=== PATIENT | female | born 1930 | race Caucasian/White ===

== ENCOUNTER 2017-03-27 08:00 | Outpatient (CLI) | payer MEDICARE, BC ==
--- NOTE | 2017-03-27 10:40 | MRI ---
NONCONTRAST LUMBAR SPINE MRI: Date: 03/27/17 CLINICAL HISTORY: Intervertebral disc disorder with lumbar radiculopathy. FINDINGS: Conus medullaris is normal in morphology, terminating at the L1-2 level. There is prominent end plat e degenerative change and disc degeneration at L4-5 with Grade I-II spondylolisthesis. There is paula re bilateral L4-5 level facet osteoarthritis. L1-2: There is a broad based disc osteophyte complex producing mild narrowing of the central canal and mild bilateral neural foraminal stenosis. L2-3: No high grade central canal or foraminal stenosis. L3-4: There is a broad based disc bulge with a superimposed right subarticular disc protrusion prod ucing potential for impingement upon the traversing right L4 nerve root. There is mild bilateral pavel ral foraminal narrowing. L4-5: There is moderate to severe central canal stenosis and moderate to severe bilateral neural fo raminal stenosis, right greater than left, results in above described degenerative listhesis and fac et osteoarthritis. L5-S1: There is no high grade central canal or neural foraminal stenosis. Incidental note of cyst formation within the kidneys bilaterally. IMPRESSION: Severe disc degenerative disease with associated degenerative spondylolisthesis producing moderate t o severe central canal and bilateral neural foraminal stenosis at the L4-5 level. POS: [facility]
== END 2017-03-27 08:01 | disposition home or self-care (01) ==
LOC: MRI 08:00
PROVIDERS: ATTEND Specialist
DX: M51.16 Intervertebral disc disorders with radiculopathy, lumbar region (principal); M43.16 Spondylolisthesis, lumbar region; M48.061 Spinal stenosis, lumbar region without neurogenic claudication
CPT/HCPCS: 72148

== ENCOUNTER 2018-01-24 08:07 | Inpatient (IN) | payer MEDICARE, BC ==
[2018-01-24 09:18] LABS: #Lymphocytes 1.7 thou/uL (1.20-3.40); #Monocytes 0.9 thou/uL (0.11-0.59); %Basophils 0.4 % (0.0-1.0); %Lymphocytes 17.7 % (21.0-51.0); %Monocytes 9.4 % (0.0-10.0); %Neutrophils 72.4 % (42.0-75.0); Mean Corpuscular HGB CONC 35.2 g/dL (32.0-36.0); Mean Corpuscular Hemoglobin 31.9 pg (27.0-31.0); Mean Corpuscular Volume 90.6 fL (78.0-98.0); Mean Platelet Volume 6.3 fL (7.4-10.4); Platelet Count 325 thou/uL (130-400); RBC Distribution Width 10.8 % (11.5-14.5); Red Blood Cell (RBC) Count 4.39 mill/uL (4.20-5.40); White Blood Cell (WBC) Count 9.6 thou/uL (4.8-10.8)
[2018-01-24 09:33] LABS: ALT (SGPT) 28 U/L (8-55); AST (SGOT) 33 U/L (5-34); Albumin 4.9 g/dL (3.4-4.8); Alkaline Phosphatase 52 U/L (40-150); Anion Gap 15 mmol/L (10-20); BUN (Urea Nitrogen) 16 mg/dL (9.8-20.1); Bilirubin, Total 0.5 mg/dL (0.2-1.2); Calc. Creatinine Clearance 0 mL/min (70-130); Calcium 10.4 mg/dL (7.8-10.44); Carbon Dioxide 28 mmol/L (23-31); Chloride 99 mmol/L (98-107); Estimated GFR-MDRD 81; Globulin 2.8 g/dL (2.4-3.5); Glucose 118 mg/dL (83-110); Potassium 4.2 mmol/L (3.5-5.1); Protein, Total 7.7 g/dL (6.0-8.3); Sodium 138 mmol/L (136-145)
[2018-01-24 09:35] LABS: CKMB 2.2 ng/mL (0-6.6); Troponin I Less than 0.010 ng/mL (< 0.028)
--- NOTE | 2018-01-24 09:58 | CT ---
NONCONTRAST HEAD CT: HISTORY: CVA. Right-sided symptoms. Previous laminectomy. COMPARISON: None. TECHNIQUE: A noncontrast head CT is performed from the skull base to the skull vertex. FINDINGS: No parenchymal hemorrhage. No extraaxial hematoma. No midline shift. The basilar cisterns are chow nt. Brain volume is age appropriate. Cortical townsend white matter differentiation is preserved. The ventricles and sulci are patent and symmetric. White matter hypodensity due to chronic small vessel ischemic changes is noted. The calvarium is intact. Adequate aeration of the sinuses and mastoid air cells. Cavernous carotid atherosclerosis is noted. IMPRESSION: No acute intracranial process. POS: [facility]
--- NOTE | 2018-01-24 10:51 | CT ---
CT CERVICAL SPINE WITHOUT CONTRAST: Date: 01/24/18 HISTORY: Pain. COMPARISON: CT cervical spine dated 08/27/13. FINDINGS: There are severe calcifications of the proximal left and right internal carotid arteries, as well as both carotid bulbs. Thyroid is unremarkable. The lung apices are clear. No paraspinal muscle hematoma. No acute fracture or malalignment. There is anterolisthesis which has progressed of C6 over C7 due to severe degenerative facet arthrosi s. This anterolisthesis is approximately 3-4 mm. The occipital condyles are intact. The odontoid process is intact. There is left C1 and C3 posterior spinal fusion with the left C1 screw entering the left side of the atlantodental interval and is abno rmal and medial to the lateral mass of C1. This is unchanged. This causes chronic erosive changes of the odontoid process. The right C1 screw is in good position. The right C2 screw is in good position. The right C3 screw is in good position. The left C2 screw is at the inferior margins of the articular pillar of C2. Also, chronic fracture of the right articular pillar of C2, unchanged from the comparison examination . There is moderate rightward deviation of the occiput relative to the cervical spine with a leftward curvature of the cervical spine. There is moderate to severe right-sided C3-4, C4-5, C5-6, and C6-7 neural foraminal narrowing. IMPRESSION: 1. Progressive C7 over T1 anterolisthesis, 3-4 mm. 2. Progressive rightward deviation of the occiput relative to the leftward curvature of the cervical spine. 3. Severe calcifications of both carotid bulbs and proximal internal carotid arteries. 4. Progressive remodeling around the left C1 articular pillar screw with erosion of the odontoid pro cess. 5. The progressive leftward curvature of the cervical spine causes moderate to severe right-sided ne ural foraminal narrowing at multiple levels. POS: [facility]
[2018-01-24] MEDS ORDERED: Gadobenate Dimeglumine 529 MG/1 ML (20ML VIAL) ONE (11:59)
[2018-01-24] MEDS ORDERED: Diabetic Tussin 200 MG/10 ML UDCUP PO PRN (12:53)
[2018-01-24] MEDS ORDERED: Senokot 8.6 MG TAB PO PRN ×2 (12:53)
[2018-01-24] MEDS ORDERED: Nitroglycerin 0.4 MG TAB (25 Tab Bottle) SL PRN (12:53)
[2018-01-24] MEDS ORDERED: Mag-Al 1200 mg/1200 mg/30 ML UDCUP PO PRN (12:53)
[2018-01-24] MEDS ORDERED: Benzonatate 100 MG CAP PO PRN (12:53)
[2018-01-24] MEDS ORDERED: Lorazepam 1 MG TAB PO PRN (12:53)
[2018-01-24] MEDS ORDERED: Acetaminophen 325 MG TAB PO PRN (12:53)
[2018-01-24] MEDS ORDERED: Bisacodyl 5 MG TAB PO PRN ×2 (12:53)
[2018-01-24] MEDS ORDERED: Calcium Carbonate 500 MG ChewTAB PO PRN (12:53)
[2018-01-24] MEDS ORDERED: Hydrocortisone Sod Succ/PF 100 mg/2 ml Vial ONE (14:35)
[2018-01-24] MEDS ORDERED: PHENYLEPHRINE-NS 100 MCG/ML 10 ML SYRINGE ONE (14:35)
[2018-01-24] MEDS ORDERED: Lidocaine 1% PF 5 ML VIAL ONE (14:35)
[2018-01-24] MEDS ORDERED: PROPOFOL 200 MG/20 ML VIAL ONE (14:35)
[2018-01-24] MEDS ORDERED: Ondansetron HCl/PF 4 MG/2 ML Vial ONE (14:35)
[2018-01-24] MEDS ORDERED: Metamucil PACK PO PRN (16:45)
--- NOTE | 2018-01-24 16:45 | HP ---
DATE OF ADMISSION: 01/24/2018 PRIMARY CARE PHYSICIAN: Jorge Leyva. CHIEF COMPLAINT: Shooting lightning pain and lighting sensation traveling down the legs. Left-sided imbalance and feeling of falling on the left side and right-sided heaviness. HISTORY OF PRESENTING ILLNESS: Ms. Khoury is a pleasant 87-year-old female with past medical history of coronary artery disease, hypertension, and breast cancer status post right-sided mastectomy, who presented to the ER with above-mentioned complaint. She also has history of bleeding duodenal ulcer. History is mainly obtained by the patient herself who is an excellent historian. Electronic medica l records have been reviewed and the case has been discussed with admitting ER physician. Ms. Khoury reports that she tried to reach up shelf last week and started to feel shooting pain and l ighting sensation traveled down her arm into her neck. She tried it again twice more and the same sy mptoms happened. Later, she noticed that she has been having some dizziness every time she moves her head to the side. She tried to go get an appointment with primary care physician, who wanted to ref er her to the Neurosurgery, but she could not get an early appointment. Later, she started to note d own that she has been having symptoms of right-sided leg heaviness and she was stumbling and falling to her left. These symptoms started yesterday. She has also now been noticing shooting shock waves going down to her legs for the past week. She has called her neurosurgeon, Dr. Son's office an d was scheduled to see them later this week with Dr. Mcclelland. She has been advised to start wearing the collar until her appointment. When she started to get the symptoms of left-sided stumbling and right leg weakness, she presented to the [facility] instead. In the [facility], she was hypertensive with blood pressure of 185/102, otherwise stable. He r workup included a CT scan of the brain which did not show any acute changes. Her 12-lead EKG was n egative for any acute changes as well. She underwent a spinal CT scan in the [facility] as well, which showed severe progressive leftward curvature of the cervical spine causing mod erate to severe right-sided neural foraminal narrowing at multiple levels, calcification of both simmons tid bulbs and proximal internal carotid arteries. She was given aspirin and was transferred to our [facility] for admission for further workup. At the time of my examination, the patient is stable and comfortably lying in bed, but she is still h aving on and off symptoms of shooting sensation down her legs. The patient denies any urinary or bowel incontinence. She denies any recent illnesses. No fever, ch ills or cough. She denies any muscle weakness or paralysis. She denies any problems with her speech , her vision, or swallowing difficulties. PAST MEDICAL HISTORY: 1. Hypertension. 2. Dyslipidemia. 3. Coronary artery disease. 4. History of right breast cancer, status post mastectomy. ALLERGIES: CODEINE and IRON. PAST SURGICAL HISTORY: Tonsillectomy, cholecystectomy, mastectomy, heart catheterization, cataract a nd back surgeries. FAMILY HISTORY: No significant family history of premature coronary artery disease or stroke. CURRENT MEDICATIONS: Include TriCor 145 mg daily, Zetia 10 mg daily, fish oil daily, Tylenol as need ed, tramadol as needed, Welchol 1875 mg p.o. b.i.d., ascorbic acid daily, pyridoxine daily, omeprazol e 20 mg daily, Metamucil as needed, Lotrel 1 capsule 5/10 mg daily, Lasix 20 mg daily, Aleve b.i.d. 2 tablets, Dramamine as needed, Benadryl as needed, calcium plus vitamin D daily, and aspirin 81 mg da jae. SOCIAL HISTORY: She is and lives with her family. She has no history of drug, tobacco or al cohol abuse. REVIEW OF SYSTEMS: A 12-point review of systems is done. It is negative except for those mentioned in the history and physical. LABORATORY DATA: CBC is rather unremarkable. Serum chemistries within normal limits. Blood sugar 1 18. Cardiac enzymes negative. IMAGING DATA: A 12-lead EKG by my review shows first-degree AV block with sinus rhythm at 100 beats per minute with left ventricular hypertrophy. CT scan of the brain done in the emergency room by my review is negative for any acute hemorrhage or infarction. Cervical spinal CT as per the HPI. PHYSICAL EXAMINATION: VITAL SIGNS: Most recent vital signs; temperature 97.7, pulse of 85, respirations 18, saturating 95% on room air, blood pressure 185/85. GENERAL: No acute distress, awake, alert, oriented x3. HEENT: The patient is wearing a cervical collar. Head is normocephalic, atraumatic. Pupils are equ al and reactive to light and accommodation. Extraocular movement intact. NECK: Supple without any lymphadenopathy, JVD or bruit. CHEST: Clear to auscultation without any wheezing, rales or rhonchi. CARDIOVASCULAR: Rhythm is regular without any murmur, rubs or gallops. ABDOMEN: Soft, nontender, nondistended, positive bowel sounds. EXTREMITIES: Free of any cyanosis, clubbing, or edema. NEUROLOGIC: [id number] is difficult on the right with intentional tremor and difficulty with finge r-to-nose on the right side. No nystagmus noticed. No focal sensory or motor deficits. Straight le g raise testing does not induce any pain in the back. SKIN: Free of any rashes or bruises. I feel warm and dry to touch. PSYCHIATRIC: Normal affect. IMPRESSION AND PLAN: 1. Right leg weakness and imbalance. The patient's symptoms are quite consistent with radiculopathy . At this time, she will be continued on the cervical collar and we will consult Neurosurgery for fu rther recommendations. We will go ahead and obtain the MRI of the lumbar, thoracic and cervical spin e. We will also obtain an MRI of the brain to rule out CVA, though the possibility of same is low. Also, we will obtain ultrasound of her neck to rule out carotid arterial stenosis given the fact that she has a moderate amount of calcium deposition seen in the CT scan of the neck. Otherwise, continu e aspirin for now. The patient is intolerant to statins, so she will be continued on Welchol and Zet ia for now. We will consult OT/PT as well. 2. History of coronary artery disease. At this time, there is no evidence to suggest ACS. The butch ent did not have any symptoms of the same. She had an echocardiogram in 2016 and follows up with Dr. Colón as an outpatient. She is instructed to continue that. We will resume her home medication of the aspirin and TriCor as well as Zetia, fish oil, and Welchol. 3. Uncontrolled hypertension. The patient's blood pressure is quite elevated. She will be restarte d on her home medications and we will add p.r.n. antihypertensives for now. We will give her an extr a dose of her Lotrel today. 4. History of right breast cancer status post mastectomy. 5. Deep venous thrombosis and gastrointestinal prophylaxis. 6. Code status: FULL CODE. Discussed with the patient. DISPOSITION: Ms. Khoury is currently being admitted to the hospital with symptoms suggestive of radi culopathy. Further management will depend upon her clinical course. She is currently under observat ion status. We will also rule out CVA as above.
[2018-01-24] MEDS ORDERED: EPINEPHrine 1 MG/10 ML Abboject SYRINGE ONE (18:00)
[2018-01-24] MEDS ORDERED: DOPamine/D5W 400 mg/250 ml PREMIX ONE (18:00)
[2018-01-24] MEDS ORDERED: Atropine Sulfate 1 mg/10 ml Syringe ONE (18:00)
[2018-01-24] MEDS: Ondansetron HCl/PF 4 MG/2 ML Vial IVP PRN (18:30)
[2018-01-24 18:50] LABS: Anion Gap 16 mmol/L (10-20); BUN (Urea Nitrogen) 21 mg/dL (9.8-20.1); Calc. Creatinine Clearance 41 mL/min (70-130); Calcium 9.1 mg/dL (7.8-10.44); Carbon Dioxide 20 mmol/L (23-31); Chloride 103 mmol/L (98-107); Estimated GFR-MDRD 53; Glucose 118 mg/dL (83-110); Potassium 4.3 mmol/L (3.5-5.1); Sodium 135 mmol/L (136-145)
[2018-01-24 18:52] LABS: Troponin I 0.011 ng/mL (< 0.028)
[2018-01-24 19:24] LABS: #Eosinphils 0.1 thou/uL (0.0-0.7); #Lymphocytes 1.6 thou/uL (1.20-3.40); #Neutrophils 6.6 thou/uL (1.40-6.50); %Basophils 0.3 % (0.0-1.0); %Eosinophils 0.8 % (0.0-10.0); %Lymphocytes 17.2 % (21.0-51.0); %Monocytes 11.1 % (0.0-10.0); %Neutrophils 70.7 % (42.0-75.0); Hemoglobin 11.8 g/dL (12.0-16.0); Mean Corpuscular HGB CONC 35.5 g/dL (32.0-36.0); Mean Corpuscular Hemoglobin 34.6 pg (27.0-31.0); Mean Corpuscular Volume 97.4 fL (78.0-98.0); Mean Platelet Volume 6.5 fL (7.4-10.4); Platelet Count 268 thou/uL (130-400); RBC Distribution Width 11.2 % (11.5-14.5); Red Blood Cell (RBC) Count 3.42 mill/uL (4.20-5.40); White Blood Cell (WBC) Count 9.3 thou/uL (4.8-10.8)
--- NOTE | 2018-01-24 19:29 | MRI ---
BRAIN MRI WITH AND WITHOUT CONTRAST 01/24/18 HISTORY: Patient states two days ago while looking up felt a sharp pain and shockwave going down the entire atul dy and legs. Dizziness . Difficulty walking since this morning. COMPARISON: None. TECHNIQUE: Brain MRI is performed with and without intravenous gadolinium administration. Multisequential, multi planar imaging is performed. FINDINGS: No hemorrhage on the axial gradient echo sequence. No parenchymal mass, mass effect, or midline shift . Brain volume is age appropriate. Cortical townsend-white matter differentiation is preserved. Ventricles and sulci are patent and symmetric. Central arterial flow voids are maintained. Absent restricted diffusion. T2 and FLAIR white matter hyperintensity due to chronic small vessel ischemic changes are noted. Small mucous retention cyst in the left maxillary sinus. Adequate mastoid air cell aeration. No pathologic enhancement of the brain parenchyma. IMPRESSION: 1. No pathologic enhancement of the brain parenchyma. Absent restricted diffusion. No acute infa rct. 2. There are chronic small vessel ischemic changes in the white matter. POS: [facility]
--- NOTE | 2018-01-24 19:48 | MRI ---
MRI CERVICAL SPINE WITH AND WITHOUT CONTRAST: 01/24/18 HISTORY: Cervical fusion. Patient felt a sharp pain in her neck when gazing upward. Patient now feels shockwav e throughout her entire body and legs. Dizziness and difficulty walking. COMPARISON: 03/05/13. TECHNIQUE: Cervical spine MRI is performed with and without intravenous gadolinium administration. Multisequential, multiplanar imaging is performed. FINDINGS: There is evidence of posterior fusion changes at C1, C2 and C3. There is associated metallic suscepti bility artifact. Overall, the cervical vertebra have appropriate T1 marrow signal intensity. No fract ure. 3.2 mm of anterolisthesis of C3 upon C4 and 2.7 mm of anterolisthesis of C6 upon C7. No significant STIR hyperintensity to suggest vertebral body edema or ligamentous injury. There appea r to be type I and type II Modic change at C6-C7. The visualized brain parenchyma, cervicomedullary junction, cervical cord and upper thoracic cord do not have any significant signal abnormality. No abnormal enhancement of the postcontrast images. C2-C3: No significant disc osteophyte complex. No high grade central canal stenosis or high grade for aminal narrowing. C3-C4: Broad based disc osteophyte complex abuts the thecal sac. Mild central canal stenosis. Degener ative changes in the bilateral uncovertebral joints results in moderate bilateral foraminal narrowing C4-C5: Broad based disc osteophyte complex abuts the thecal sac. Mild central canal stenosis. Degener ative changes of bilateral uncovertebral joints results in mild bilateral foraminal narrowing. C5-C6: Broad based disc osteophyte complex abuts the thecal sac. Mild central canal stenosis. Mild bi lateral foraminal narrowing. C6-C7: There is severe central canal stenosis secondary to what appears to be an acute disc herniatio n. This disc fragment measures approximately 0.7 cm craniocaudal x 0.5 cm anterior posterior. At the level of severe stenosis, there is marked deformity of the cord without T2 hyperintensity in the cord . C7-T1: No high grade central canal stenosis or high grade foraminal narrowing. IMPRESSION: 1. Posterior cervical fusion changes as above. 2. Degenerative changes of the cervical spine as above. 3. Acute disc herniation at C6-C7 with severe central canal stenosis. Neurosurgical consultation is recommended. POS: [facility]
--- NOTE | 2018-01-24 20:17 | MRI ---
THORACIC SPINE MRI WITH AND WITHOUT CONTRAST: 01/24/18 HISTORY: Two days ago, patient was looking up to grab medicine and felt a sharp pain. Shockwaves throughout th e entire body and legs. Difficulty walking. COMPARISON: None. TECHNIQUE: MRI thoracic spine is performed with and without intravenous gadolinium administration. Multisequenti al, multiplanar imaging is performed. FINDINGS: there is appropriate T1 narrow signal intensity of the thoracic vertebrae. Thoracic spine vertebral b willis height is maintained. There is no fracture. There is no significant STIR hyperintensity to sugges t vertebral body edema or ligamentous injury. There is appropriate signal intensity of the visualized mediastinal structures, lung parenchyma and s olid organs. Minimal atelectatic changes in the lung bases are noted. The thoracic cord has the overa ll normal sinus and signal intensity. Conus medullaris is not included on this exam. There is no sign ificant central canal stenosis or foraminal narrowing throughout the thoracic spine. Postcontrast images do not demonstrate any abnormal enhancement with regards to the thoracic cord or with regards to the thoracic vertebrae. IMPRESSION: 1. Unremarkable appearing postcontrast thoracic spine MRI. No significant central canal stenosis or foraminal narrowing. 2. No cord signal abnormality. POS: [facility]
--- NOTE | 2018-01-24 20:37 | MRI ---
LUMBAR SPINE MRI WITH AND WITHOUT CONTRAST 01/24/18 HISTORY: When patient was gazing upward to get medicine, the patient felt a sharp shock. Patient is having dif ficulty walking. COMPARISON: 03/27/17. TECHNIQUE: Lumbar spine MRI is performed with and without intravenous gadolinium administration. Multisequential , multiplanar imaging is performed. FINDINGS: Appropriate T1 marrow signal intensity of the lumbar vertebrae. Lumbar spine vertebral body height is maintained. There is no fracture. No significant STIR hyperintensity to suggest vertebral body edema or ligamentous injury. There is evidence of type I and type II Modic change at the L4-5 disc space. There appears to be Schmorl's nodes along the inferior end plate of L4 and to a lesser extent superio r end plate of L5. There is anterolisthesis of L4 upon L5 (7 mm). There appears to be associated spon dylolysis. Spondylolisthesis and spondylolysis are suggested on the previous examination. At that vasquez e, there was also 7 mm of anterolisthesis of L4 upon L5. Note, on that study there was suggestion that the spondylolisthesis was due to osteoarthrosis rather than spondylolysis. Confirmation with oblique radiographs is recommended. Conus medullaris terminates at the mid to lower aspect of L1. There is appropriate signal intensity in the visualized solid organs. There is a T2 hyperintensity in the left kidney, compatible with a cyst. There is a nonspecific T2 hyperintensity in the right adnexa, incompletely evaluated. Nonemergent pel hermann ultrasound can be performed. Note is made of a right sided extra renal pelvis. Postcontrast images do not demonstrate any abnormal enhancement within the thecal sac including the c auda equina and conus medullaris. There is no abnormal enhancement of the lumbar vertebral bodies. T12-L1: Adequate disc hydration. No significant central canal stenosis or foraminal narrowing. Minim al disc desiccation without significant loss of disc space height. Neural foramina are patent. L1-L2: Minimal loss of disc space height and minimal disc desiccation. No significant central canal s tenosis. Neural foramina are patent. L2-L3: Adequate disc hydration. No significant central canal stenosis or foraminal narrowing. L3-L4: Minimal disc desiccation without significant loss of disc space height. No significant central canal stenosis or foraminal narrowing. There is bilateral facet hypertrophy. L4-L5: There appears to be posterior laminectomy defect. There is severe central canal stenosis. The degree of central canal stenosis has not changed when compared to prior examination. Severe right and moderate to severe left foraminal narrowing. L5-S1: No significant central canal stenosis or neural foraminal narrowing. IMPRESSION: 1. Severe central canal stenosis at L4-L5, unchanged from the previous examination. There is als o severe right and moderate to severe left neural foraminal narrowing. 2. No abnormal enhancement of the vertebral bodies or contents of the central spinal canal. 3. T2 hyperintensity in the right adnexa, incompletely evaluated. Nonemergent pelvic MRI is donita mmended. POS: [facility]
[2018-01-24] MEDS ORDERED: Sodium Chloride 0.9% 10 ML ONE (20:47)
[2018-01-24] MEDS ORDERED: Bacitracin Zinc Ointment 30 gm TUBE ONE (20:47)
[2018-01-24] MEDS ORDERED: Thrombin 5000 UNITS/5 ML VIAL ONE (20:47)
[2018-01-24] MEDS ORDERED: Nitroglycerin 50 MG/250 ML BOT 0 ML ONE (21:12)
[2018-01-24] MEDS ORDERED: Norepinephrine 8 MG/0.9% NS 0 ML ONE (21:12)
[2018-01-24] MEDS ORDERED: Phenylephrine HCL 10 MG/ML VIAL ONE (21:12)
[2018-01-24] MEDS ORDERED: Fentanyl 100 MCG/2 ML VIAL ONE (21:30)
[2018-01-24] MEDS: Calcium Carbonate + Vit D 1 TAB PO SCH (22:23)
[2018-01-24] MEDS: Famotidine 20 MG TAB PO SCH (22:24)
[2018-01-25] MEDS ORDERED: Acetaminophen 1,000 MG in Premix Bag 1 BAG IVPB PRN (00:08)
[2018-01-25] MEDS ORDERED: Dexamethasone 4 MG in Sodium Chloride 0.9% 50 ML IVPB SCH (00:29)
[2018-01-25] MEDS ORDERED: tiZANidine HCl 4 MG TAB PO PRN (00:29)
[2018-01-25] MEDS: Sodium Chloride 0.9% 1,000 ML IV SCH ×2 (00:36→19:19)
[2018-01-25] MEDS ORDERED: Dexamethasone 4 mg/ml Vial SLOW IVP SCH (00:45)
[2018-01-25] MEDS ORDERED: DOPamine 400 MG/D5W 250 ML 250 ML IVPB SCH (01:15)
--- NOTE | 2018-01-25 03:17 | CON ---
DATE OF CONSULTATION: 01/24/2018 HISTORY OF PRESENT ILLNESS: Ms. Khoury is an 87-year-old female who has had cervical spine surgery in the past. She has been having pain in her legs and arms intermittently for several weeks. She has had a Medrol Dosepak as an outpatient. These pains have been fleeting, but she also started to develop some dizziness. She says her p.o. intake has been good through yesterday, but today she has been more or less n.p.o. the whole day with very little intake. They called her primary care doctor, who recommended they see a neurosurgeon. Neurosurgery appointments are while out that as expected and by her history, this did not seem to be, in my opinion, something that is emergent. She presented today with hypertension and the same complaints. She had a cervical spine CT in the emergency room that showed a C7 over T1 anterolisthesis by 3-4 mm, rightward deviation of the occiput relative to leftward curvature of the spine, carotid calcification, C1 screw erosion of the odontoid and leftward curvature of the cervical spine. Reportedly, at the time of admission, she did not have any significant neurological deficits. She went downstairs for a total body MRI today. While she was in the MRI scanner, she started having significant discomfort in her arms. She eventually dropped her blood pressure. When she was set up coming out of the MRI, I am told she had a collar on in the MRI. Radha Napier was called and she was transferred to the Critical Care Unit. I was consulted to see her for her assistance with management in the Critical Care Unit. When I arrived, her blood pressure was 126/43, heart rate was in the 60s , respiratory rate was 18. She was conversant. Unfortunately, her first complaint was that she could not feel or move her legs. She had minimal reflex movement of her right foot. She was anesthetic up to above her umbilicus. PHYSICAL EXAMINATION: HEAD AND NECK: Remarkable for having a hard collar on. HEENT: Pupils were reactive. Sclerae were anicteric. LUNGS: Clear. HEART: Regular rhythm. ABDOMEN: Soft. LABORATORY DATA: Electrolytes were essentially unremarkable. It is interesting to note that she had an albumin of 4.9 on presentation with a normal globulin making me wonder if she intravascularly dry. Her hemoglobin this morning was 14 and is 11.8 now. After I examined her, I contacted Dr. Paiz, who was reviewing her spinal MRI at that time. It was felt that she has a surgical emergency with acute cord compression from a disk herniation into her cervical spine, most likely while she was in the MRI in an uncomfortable position. Emergent decompression will be performed tonight. She will be left mechanically ventilated. Dr. Paiz's assistance is appreciated. I suspect her hypotension in the MRI scan that was orthostatic, but it was actually spinal shock. Critical care time 35 minutes. LAMONTE
[2018-01-25] MEDS: Colesevelam Hcl [Welchol] 1,875 MG PO SCH ×3 (04:06→19:13)
[2018-01-25 04:39] LABS: #Monocytes 0.3 thou/uL (0.11-0.59); #Neutrophils 10.4 thou/uL (1.40-6.50); %Eosinophils 0.1 % (0.0-10.0); %Lymphocytes 8.5 % (21.0-51.0); %Monocytes 2.8 % (0.0-10.0); %Neutrophils 88.6 % (42.0-75.0); Mean Corpuscular HGB CONC 35.1 g/dL (32.0-36.0); Mean Corpuscular Hemoglobin 34.1 pg (27.0-31.0); Mean Corpuscular Volume 96.9 fL (78.0-98.0); Mean Platelet Volume 6.9 fL (7.4-10.4); Platelet Count 298 thou/uL (130-400); RBC Distribution Width 11.3 % (11.5-14.5); Red Blood Cell (RBC) Count 3.52 mill/uL (4.20-5.40); White Blood Cell (WBC) Count 11.7 thou/uL (4.8-10.8)
[2018-01-25 05:03] LABS: Anion Gap 15 mmol/L (10-20); BUN (Urea Nitrogen) 18 mg/dL (9.8-20.1); Calc. Creatinine Clearance 55 mL/min (70-130); Calcium 8.7 mg/dL (7.8-10.44); Carbon Dioxide 22 mmol/L (23-31); Chloride 104 mmol/L (98-107); Estimated GFR-MDRD 74; Glucose 138 mg/dL (83-110); Potassium 3.5 mmol/L (3.5-5.1); Sodium 137 mmol/L (136-145)
[2018-01-25] MEDS: CEFAZOLIN 2 GM in Sodium Chloride 0.9% 100 ML IVPB SCH ×3 (05:38→21:52)
[2018-01-25] MEDS: Dexamethasone 4 mg/ml Vial SLOW IVP SCH ×4 (05:39→23:03)
[2018-01-25] MEDS: traMADol HCl 50 MG TAB PO PRN (05:39)
--- NOTE | 2018-01-25 06:53 | CON ---
DATE OF CONSULTATION: 01/24/2018 This is Gordon Sebastian PA-C, dictating for Deon Paiz MD This is a 50-minute initial patient consult in which greater than 50% of the exam was spent counselin g and coordinating patient's care. Remainder of the exam was spent in review of patient's medical re cords and appropriate imaging studies. CHIEF COMPLAINT: Progressive weakness with neurologic deficit. HISTORY OF PRESENT ILLNESS: Ms. Khoury is a pleasant 87-year-old female who presents to [facility] for the above complaints. Apparently, she was experiencing right-sided upper and lower weakn ess with sharp shooting electric light sensations down the spine and into the legs with any type of r dimple of motion of the cervical spine, especially when looking up. Essentially this is described as a positive Lhermitte's sign. She does have a history of previous C1-3 posterior cervical fusion, Dr. Son in 2013, and has done well since that time other than posterior neck pain. Given her acuit y of right upper and lower extremity weakness, she called Dr. Son's office and was able to sche dule an appointment with one of his colleagues and placed in a Kittson J collar. Although she denies f alls, she began to experience continued weakness in the right upper and lower extremities. She under went MRIs of the spine around 3:00 p.m. today and after transfer from the studies, had a complete par alysis of the bilateral lower extremities with moderate to severe bilateral hand intrinsic weakness, right greater than left. For this, Neurosurgery was consulted and it was found that the patient had a very large disk herniation at the C6-7 level, significant cord compression, which would likely expl ain her symptoms. She does have a significant hypertrophy, posterior cervical ligament at the C6-7 l evel, but it may be more prudent as well. She is on 81 mg aspirin for CAD, history of a breast cance r. She also has a lumbar spine laminectomy with Dr. Son in the past. PHYSICAL EXAMINATION: The patient is awake, alert, and appropriate. She provides the majority of he r history, although her family helps provide some history as well. She has good strength in the bila teral deltoids, however, has right greater than left, moderate to severe hand weakness. She has no s ensation and no movement of the bilateral lower extremities. She has little to no sensation at the u mbilicus. She is in a well-fitting Kittson J collar. IMPRESSION/DIAGNOSIS: C6-7 herniated disk causing severe spinal cord compression. PLAN: I have discussed the patient's case and imaging with Dr. Paiz. At this time, we will plan t o take the patient emergently to surgery and the procedure will be C6-C7 ACDF with the possibility of staged procedure of C6-7 posterior laminectomies, screw fixation and fusion. I have consented the p atient and discussed risks and benefits to the patient and her family and they wished to proceed, und erstanding the risks. I did let them know that she may be intubated overnight, we will appreciate th e management of vent settings by her canvas marker. Certainly if the patient is medically unstable, we will not do the posterior cervical laminectomy and posterior fusion if the patient is stable. Daisy uld she not be, then we may do some staged procedure, may not need to do it at all, but we will plan to proceed with ACDF C6-7. The patient and her family are very pleased with the workup.
[2018-01-25] MEDS: Furosemide 20 MG TAB PO SCH (08:26)
[2018-01-25] MEDS: Famotidine 20 MG TAB PO SCH ×2 (08:26→19:13)
[2018-01-25] MEDS: Ascorbic Acid 500 mg Chewable Tablet PO SCH (08:26)
[2018-01-25] MEDS: pyridOXINE 50 MG (B6) TAB PO SCH (08:31)
[2018-01-25] MEDS: Amlodipine 5 mg/Benazepril 10 mg CAP PO SCH (08:32)
[2018-01-25] MEDS ORDERED: Enoxaparin Sodium 40 MG/0.4 ML SYRINGE SC SCH (09:00)
[2018-01-25] MEDS ORDERED: Amlodipine 5 mg/Benazepril 10 mg CAP PO SCH (09:00)
[2018-01-25] MEDS ORDERED: Fish Oil 1,000 MG CAP PO SCH (09:00)
[2018-01-25] MEDS: cloNIDine 0.1 MG TAB PO PRN (09:10)
[2018-01-25] MEDS: Ezetimibe 10 MG TAB PO SCH (12:09)
[2018-01-25] MEDS: Fenofibrate Nanocrystallized 145 MG TAB PO SCH (12:09)
--- NOTE | 2018-01-25 12:11 | PRG ---
DATE OF SERVICE: 01/24/2018 INITIAL HOSPITAL VISIT NOTE CHIEF COMPLAINT: Acute on subacute quadriplegia with C6-C7 disk extrusion. I reviewed the notes of my colleague Gordon Sebastian PA-C. Ms. Khoury is a very pleasant 87-year-old woman. She presented over the last couple months with progressive myelopathy including a positive L hermitte's sign with increasing neck and arm pain. She presented to the emergency room and full cran ial spinal imaging yielded an acute C6-C7 disk extrusion of circumferential stenosis. During the MRI she progressed to quadriplegia, likely due to just simply having delay on the table for over 2 hours and not her typical cervical spine position. She also has a history of C1-C3 stabilization by Dr. Isela velasco. Given the acuity of the findings in both radiologically and clinically, we will plan to ta ke her emergently to surgery for C6-C7 ACDF. The family has been consented, they understands the pos sibility of a potential posterior approach for decompression and fusion and they understand the risks up to and including but not limited to wound healing issues like such as infection, bleeding, spinal fluid leak, dehiscence, CSF leak, the need for more surgery, temporary and permanent neurologic defi cit beyond what she has now, instrumentation loosening and the need for further surgery. Also they u nderstands the risk of medical complications. Further understand that if nothing is done, this would likely be permanent. Her age, I would be very concerned further about any type of quality of life a nd significant risk of mortality of quadriplegia. They wish that we proceed. DIAGNOSIS: Acute on subacute neurological decline with C6-C7 myelopathy and disk extrusion.
--- NOTE | 2018-01-25 12:13 | PRG ---
DATE OF SERVICE: 01/25/2018 Ms. Khoury is postoperative day 1 from C6-C7 ACDF from emergent quadriplegia, resulted from a disk ex trusion, C6-C7. Full cranial spinal imaging was, otherwise, negative essentially with the exception of longstanding L4-L5 spondylolisthesis with severe stenosis in the L4 neural foramen. I am very ple ased with how she is doing today, as she has regained some light touch sensation below the level of T 4. She is also able to move both upper extremities antigravity at the shoulder and bend her elbows. She remains quite weak in the lower extremities with very faint wiggle of the toes on the right side . There is no clonus. We will leave her drain in place and continue to watch her closely. We will continue to auto-MAP over 80 and continue Decadron. I have spoken with Dr. Rich. We may begin to m obilize her as tolerated with the collar being worn when she is out of bed, but does not need to be w orn when she is lying in bed or eating. She and her family are very pleased. It will essentially ta ke time to know the extent of her recovery.
--- NOTE | 2018-01-25 13:43 | CON ---
DATE OF CONSULTATION: 01/25/2018 HISTORY: Nancy Khoury is a pleasant 87-year-old white female, who is a longtime patient of Dr. Colón. In 05/1999, she underwent cardiac catheterization. She has 30% proximal LAD, 40% ostial diagonal lesion. There was a 20% proximal circumflex. Right coronary had a 20% and 30% mid stenosis. Ejection fraction was 70%. Also, in 04/2013, she was found to have atrial flutter with heart rate of 130 and 2:1 AV block. She underwent flutter ablation by Dr. Morales. Ms. Khoury has a longstanding history of cervical problems and has undergone surgery in the past. She now is admitted with weakness in her legs, falling, and eventual numbness in her legs. She went to the [facility] Room and then was transferred here. She underwent MRI scan yesterday at approximately 1830 hours. She complained of increased pain and then became unresponsive, and apparently her heart rate was less than 50 per minute, blood pressure less than 90, and then fell to 80 systolic. She was given 1 liter of normal saline and atropine 0.5 mg, dopamine drip was started and she was transferred to the CCU. While being monitored prior to the MRI, she would have episodes of significant sinus arrhythmia with heart rate intermittently dropping to the mid 40s. EKG from the office from 07/2017 shows a similar pattern of sinus arrhythmia and then abrupt slowing of her heart rate. She denies any history of lightheadedness, dizziness. She had an episode of syncope in 2004, when she had a hemoglobin of 7 with GI bleeding. She was found to have cord compression, underwent cervical laminectomy on an emergent basis last night. Another rhythm strip at 01:41 a.m. shows sinus bradycardia with heart rate of 45 per minute. PAST MEDICAL HISTORY: Mild coronary artery disease as outlined above, hypertension, hyperlipidemia, right breast cancer, sinus arrhythmia in the past , 40%-60% left internal carotid stenosis, mild aortic stenosis on echo in the past. MEDICATIONS: Lotrel 5-10 q.a.m., vitamin C, aspirin 81 daily, calcium carbonate plus vitamin D q.p.m., Welchol 3 tablets b.i.d., Dramamine p.r.n., Benadryl p.r.n., Zetia 10 mg daily, fenofibrate 145 mg daily, fish oil 1000 mg daily, furosemide 20 q.a.m., Aleve 2 tablets b.i.d., omeprazole 20 daily, Metamucil p.r.n., vitamin B6 100 mg daily, and tramadol p.r.n. ALLERGIES: CODEINE, IODINE, and SIMVASTATIN. OPERATIONS: Atrial flutter ablation, previous cervical surgery, and then surgery late last night for cervical cord compression, right mastectomy, cholecystectomy, tonsillectomy, cataract surgery, and back surgery. FAMILY HISTORY: Unremarkable. SOCIAL HISTORY: She does not smoke or drink. REVIEW OF SYSTEMS: A 12-point review of systems, otherwise, unremarkable. Again, the patient denies ever having any syncope, lightheadedness, or dizziness. No chest pain or shortness of breath. PHYSICAL EXAMINATION: VITAL SIGNS: Blood pressure 134/50, pulse of 44 per minute. HEENT: PERRL. NECK: Cervical collar in place. LUNGS: Chest is clear. CARDIAC EXAMINATION: S1 and S2 are normal, without any S3 or S4. There is a 1/ 6 systolic murmur. ABDOMEN: Normal bowel sounds, without tenderness. EXTREMITIES: Reveal no clubbing, cyanosis, or edema. NEUROLOGIC: The patient continues to have numbness in her legs, but is able to move her right arm. She states she cannot move her legs. SKIN: Warm and dry. LABORATORY DATA: EKG reveals sinus bradycardia with rate of 52 per minute and is unremarkable. Hemoglobin 12.0, hematocrit 34.2, white count 11,700, platelets 298,000. Sodium 137, potassium 3.5, chloride 104, carbon dioxide 22, BUN 18, creatinine 0.74. Troponin I is negative x2. IMPRESSION: 1. Probable vasovagal episode with hypotension and bradycardia after extreme pain during the MRI. 2. History of sinus arrhythmia with abruptly having her heart rate drop into the 40s. This is a previous finding and is present on EKG from the office in . 3. Atrial flutter ablation in 2012. 4. Mild coronary artery disease. 5. Hypertension. 6. Hyperlipidemia. 7. History of breast cancer. 8. Mild aortic stenosis on last echocardiogram. PLAN: Ms. Khoury has significant sinus arrhythmia with abruptly having her heart rate drop into the 40s; however, it does not sound as if she is symptomatic with this without any history of lightheadedness, dizziness, or syncope (except when she was anemic with GI bleeding). At the present time, this does not require any treatment. However, certainly beta blockers should be avoided. We will continue to follow her with you. LAMONTE
--- NOTE | 2018-01-25 13:58 | PDOC.PN ---
- Subjective Encounter Start Date: 01/25/18 Encounter Start Time: 13:56 Subjective: feels much better this morning.extubated and awake -: Family at bedside. care discussed.events from last night discussed -: s/p emergent spinal Sx for C6-7 cord compression & quadriplegia - Objective MAR Reviewed: Yes Vital Signs & Weight: Vital Signs (12 hours) Temp Pulse Resp Pulse Ox 01/25/18 12:00 97.6 F 01/25/18 08:00 97.9 F 01/25/18 07:25 97.9 F 59 L 20 93 L 01/25/18 06:39 95 01/25/18 06:00 98.2 F 01/25/18 03:00 97.8 F 01/25/18 02:00 97 F L Weight Weight 141 lb Most Recent Monitor Data Heart Rate from ECG 74 NIBP 104/41 NIBP BP-Mean 62 Respiration from ECG 17 SpO2 96 I&O: 01/24/18 01/25/18 01/26/18 06:59 06:59 06:59 Intake Total 665 944 Output Total 835 315 Balance -170 629 Result Diagrams: 01/25/18 04:00 01/25/18 04:00 Additional Labs: Accuchecks 01/24/18 18:00 POC Glucose 129 H labs reviewed Phys Exam - Physical Examination Constitutional: NAD HEENT: PERRLA, moist MMs, sclera anicteric, oral pharynx no lesions cervical collar in place Neck: no nodes, no JVD, supple, full ROM Respiratory: no wheezing, no rales, no rhonchi, clear to auscultation bilateral Cardiovascular: RRR, no significant murmur Gastrointestinal: soft, non-tender, no distention, positive bowel sounds Musculoskeletal: no edema, pulses present Neurological: non-focal, normal sensation, moves all 4 limbs Psychiatric: normal affect, A&O x 3 Skin: no rash Dx/Plan (1) Acute herniation of intervertebral disc Code(s): [id number] - Status: Acute Comment: s/p emergent spinal surgery (2) Spinal cord compression Code(s): G95.20 - UNSPECIFIED CORD COMPRESSION Status: Acute (3) Sinus arrhythmia Code(s): I49.9 - CARDIAC ARRHYTHMIA, UNSPECIFIED Status: Chronic (4) Hypotension Status: Resolved Comment: Likley vasovagal due to acute cord compression.resolved (5) HTN (hypertension) Code(s): I10 - ESSENTIAL (PRIMARY) HYPERTENSION Status: Chronic (6) H/O atrial flutter Code(s): Z86.79 - PERSONAL HISTORY OF OTHER DISEASES OF THE CIRCULATORY SYSTEM Status: Chronic Comment: s/p ablation - Plan plan discussed w/ family, respiratory therapy, incentive spirometry, DVT proph w /SCDs cont CCU care.cervical collar .post -op care -: add prn antihypertensives -: appreciate help from all specialists -: ECHO show no valvular/functional abnornality -: cont frequent neuro status checks.am labs * . Review of Systems - Review of Systems Constitutional: weakness. negative: fever, chills, sweats, malaise, other ENT: negative: Ear Pain, Ear Discharge, Nose Pain, Nose Discharge, Nose Congestion, Mouth Pain, Mouth Swelling, Throat Pain, Throat Swelling, Other Respiratory: negative: Cough, Dry, Shortness of Breath, Hemoptysis, SOB with Excertion, Pleuritic Pain, Sputum, Wheezing Cardiovascular: negative: chest pain, palpitations, orthopnea, paroxysmal nocturnal dyspnea, edema, light headedness, other Genitourinary: negative: Dysuria, Frequency, Incontinence, Hematuria, Retention , Other Musculoskeletal: negative: Neck Pain, Shoulder Pain, Arm Pain, Back Pain, Hand Pain, Leg Pain, Foot Pain, Other Skin: negative: Rash, Lesions, Mike, Bruising, Other Neurological: Weakness (LE), Numbness (LE b/l) - Medications/Allergies Allergies/Adverse Reactions: Allergies Allergy/AdvReac Type Severity Reaction Status Date / Time codeine Allergy Verified 04/24/13 09:41 iodine Allergy Verified 04/24/13 09:41 Medications: Current Medications Acetaminophen (Tylenol) 650 mg PO Q4H PRN PRN Reason: Headache/Fever or Pain Acetaminophen (Tylenol) 500 mg PO Q4H PRN PRN Reason: Mild Pain (1-3) Al Hydroxide/Mg Hydroxide (Maalox) 30 ml PO Q6H PRN PRN Reason: Heartburn or Indigestion Amlodipine/Benazepril HCl (Lotrel 5/10) 1 cap PO DAILY [facility] Last Admin: 01/25/18 08:32 Dose: 1 cap Ascorbic Acid (Vitamin C) 500 mg PO DAILY [facility] Last Admin: 01/25/18 08:26 Dose: 500 mg Benzonatate (Tessalon) 100 mg PO Q4H PRN PRN Reason: Cough Bisacodyl (Dulcolax) 10 mg PO DAILYPRN PRN PRN Reason: Constipation Calcium Carbonate (Tums) 1,000 mg PO Q4H PRN PRN Reason: Heartburn or Indigestion Calcium/Vitamin D (Caltrate 600 + Vit D) 1 tab PO QPM [facility] Last Admin: 01/24/18 22:23 Dose: Not Given Clonidine (Catapres) 0.1 mg PO Q4H PRN PRN Reason: Systolic BP > 160 Last Admin: 01/25/18 09:10 Dose: 0.1 mg Dexamethasone (Decadron) 4 mg SLOW IVP Q6HR [facility] Last Admin: 01/25/18 12:10 Dose: 4 mg Ezetimibe (Zetia) 10 mg PO DAILY [facility] Last Admin: 01/25/18 12:09 Dose: 10 mg Famotidine (Pepcid) 20 mg PO BID [facility] Last Admin: 01/25/18 08:26 Dose: 20 mg Fenofibrate (Tricor) 145 mg PO DAILY [facility] Last Admin: 01/25/18 12:09 Dose: 145 mg Furosemide (Lasix) 20 mg PO DAILY [facility] Last Admin: 01/25/18 08:26 Dose: 20 mg Guaifenesin (Robitussin Sf) 200 mg PO Q4H PRN PRN Reason: Cough Hydralazine HCl (Apresoline) 10 mg SLOW IVP Q4H PRN PRN Reason: Systolic BP > 170 Sodium Chloride (Normal Saline 0.9%) 1,000 mls @ 50 mls/hr IV .Q20H [facility] Last Admin: 01/25/18 00:36 Dose: 1,000 mls Acetaminophen 1,000 mg/ Device 100 mls @ 400 mls/hr IVPB Q6H PRN PRN Reason: PAIN 1-3 Stop: 01/26/18 00:09 Last Admin: 01/25/18 00:35 Dose: 100 mls Cefazolin Sodium 2 gm/ Sodium (Chloride) 100 mls @ 200 mls/hr IVPB Q8HR [facility] Last Admin: 01/25/18 05:38 Dose: 100 mls Dopamine HCl/Dextrose (Dopamine/D5w) 250 mls @ 0 mls/hr IVPB INF JERI; As Directed PRN Reason: Protocol Lorazepam (Ativan) 1 mg PO Q4H PRN PRN Reason: Anxiety/Agitation Nitroglycerin (Nitrostat) 0.4 mg SL Q5MIN PRN PRN Reason: Chest Pain Ondansetron HCl (Zofran) 4 mg IVP Q6H PRN PRN Reason: Nausea/Vomiting Last Admin: 01/24/18 18:30 Dose: 4 mg Pantoprazole Sodium (Protonix) 40 mg PO DAILY [facility] Last Admin: 01/25/18 08:29 Dose: Not Given Colesevelam Hcl [ (Welchol] 1,875 Mg) 0 each PO BID [facility] Last Admin: 01/25/18 08:26 Dose: 1 each Psyllium Hydrophilic Mucilloid (Metamucil) 1 pk PO DAILYPRN PRN PRN Reason: Constipation Pyridoxine HCl (Vitamin B 6) 100 mg PO DAILY [facility] Last Admin: 01/25/18 08:31 Dose: 100 mg Senna (Senokot) 2 tab PO HSPRN PRN PRN Reason: Constipation Tizanidine HCl (Zanaflex) 4 mg PO TID PRN PRN Reason: Muscle Spasm Tramadol HCl (Ultram) 50 mg PO Q6H PRN PRN Reason: Mild Pain (1-3) Last Admin: 01/25/18 05:39 Dose: 50 mg
--- NOTE | 2018-01-25 15:08 | OP ---
DATE OF SURGERY: 01/24/2018 OR: 11 WOUND TYPE: Type 1 wound. SURGEON: Deon Paiz M.D. BULB FARMWORKER: Gordon Sebastian PA-C PREPROCEDURE DIAGNOSIS: C6-C7 disk extrusion with acute on subacute decline. POSTPROCEDURE DIAGNOSIS: C6-C7 disk extrusion with acute on subacute decline. PROCEDURES: 1. Anterior C6-C7 diskectomy for decompression of spinal cord and C7 nerve roots. 2. Preparation of the endplates C6-C7 for arthrodesis with placement of interbody spacer at C6-C7 wi th local bone autograft and allograft. 3. C6-C7 anterior cervical plate and screw fixation. 4. Use of operative microscope for microdissection. A modifier 57 should be added to this surgery as the decision to operate was made on the day I saw th e patient. PROCEDURE IN DETAIL: After informed consent was obtained from the patient and family, the patient br ought to OR 11. Proper patient pause and identification was carried out. She was placed under excel lent general endotracheal anesthesia and her cervical spine was preserved in neutral position. Right anterior oblique dion was made in the C6-C7 region. This area sterilely cleansed, prepared, and jose carlos ped. Proper patient pause identification carried out. The wound was then opened with a combination of sharp, monopolar and blunt dissection, proceeded lateral to the tracheoesophageal bundle and media l to the right carotid sheath. We identified the prevertebral layer of deep cervical fascia and long us colli muscles. Longus colli muscles were swept laterally and localization film confirmed our area of interest. Distraction then occurred. The microscope was brought in the field. Microscope was b rought in the field for microdissection. Diskectomy was performed with excellent decompression of co mmon dural tube and the C7 nerve roots. We were able to distract the space and I was satisfied with her circumferential decompression as there is a spinal cord began to migrate into more of a normal an atomic position. The endplates were then prepared. Hemostasis maximized throughout the wound. Spac er was packed with local bone autograft and allograft and placed at C6-C7 anterior cervical plate and screw fixation occurred with final tightening. Copious irrigation occurred throughout. The wound w as then closed in anatomic layers over a drain. The patient then emerged from anesthesia.
[2018-01-25] MEDS: Calcium Carbonate + Vit D 1 TAB PO SCH (19:13)
--- NOTE | 2018-01-25 21:35 | PRG ---
DATE OF SERVICE: 01/25/2018 SUBJECTIVE: Iraida is much better today. She is moving her legs. Dr. Paiz was able to surgically address all of her issues anteriorly. OBJECTIVE: GENERAL: She was actually able to be extubated last night. VITAL SIGNS: She is afebrile, heart rate 60, respiratory rate 17, oximetry is 98 on 2 liters. LUNGS: Clear. HEART: Regular rhythm. ABDOMEN: Soft. EXTREMITIES: Without asymmetry. LABORATORY DATA: White count 11.7, hemoglobin 12.0, platelets 298,000. Sodium 137, potassium 3.5, c hloride 104, bicarbonate 22, BUN 18, creatinine 0.7. IMPRESSION: Disk herniation while in the MRI scanner leading to emergent surgical decompression ____ _ last night with improved neurological function. PLAN: Continue care in the ICU.
[2018-01-26] MEDS: traMADol HCl 50 MG TAB PO PRN ×2 (02:30→13:18)
[2018-01-26] MEDS: Dexamethasone 4 mg/ml Vial SLOW IVP SCH ×4 (05:17→23:02)
[2018-01-26] MEDS: CEFAZOLIN 2 GM in Sodium Chloride 0.9% 100 ML IVPB SCH ×3 (05:17→21:03)
[2018-01-26] MEDS: cloNIDine 0.1 MG TAB PO PRN (06:06)
[2018-01-26] MEDS: hydrALAZINE 20 MG/ML VIAL SLOW IVP PRN (06:40)
[2018-01-26] MEDS: Amlodipine 5 mg/Benazepril 10 mg CAP PO SCH ×3 (09:14→11:54)
[2018-01-26] MEDS: Furosemide 20 MG TAB PO SCH (09:15)
[2018-01-26] MEDS: Ascorbic Acid 500 mg Chewable Tablet PO SCH (09:16)
[2018-01-26] MEDS: Famotidine 20 MG TAB PO SCH (09:16)
[2018-01-26] MEDS: pyridOXINE 50 MG (B6) TAB PO SCH (09:16)
[2018-01-26] MEDS: Colesevelam Hcl [Welchol] 1,875 MG PO SCH ×2 (09:17→19:52)
[2018-01-26 09:29] LABS: Hemoglobin 11.1 g/dL (12.0-16.0)
[2018-01-26 09:49] LABS: Anion Gap 15 mmol/L (10-20); BUN (Urea Nitrogen) 19 mg/dL (9.8-20.1); Calc. Creatinine Clearance 55 mL/min (70-130); Calcium 8.3 mg/dL (7.8-10.44); Carbon Dioxide 18 mmol/L (23-31); Chloride 100 mmol/L (98-107); Estimated GFR-MDRD 74; Glucose 169 mg/dL (83-110); Potassium 3.4 mmol/L (3.5-5.1); Sodium 130 mmol/L (136-145)
[2018-01-26] MEDS ORDERED: DEXTROSE 5% IVPB SCH (11:30)
[2018-01-26] MEDS ORDERED: ISOPROTERENOL IVPB SCH (11:30)
[2018-01-26] MEDS ORDERED: WATER IVPB SCH (11:30)
[2018-01-26] MEDS: Fenofibrate Nanocrystallized 145 MG TAB PO SCH (11:49)
[2018-01-26] MEDS: Ezetimibe 10 MG TAB PO SCH (11:49)
[2018-01-26] MEDS ORDERED: CCU Electrolyte Replacement 1 EACH FS ONE (14:22)
[2018-01-26] MEDS ORDERED: CCU ELECTROLYTE REPLACEMENT PROTOCOL FS PRN (14:23)
[2018-01-26] MEDS ORDERED: Magnesium Oxide 400 MG TAB PO PRN ×2 (14:23)
[2018-01-26] MEDS ORDERED: Potassium Chloride 40 MEQ in Premix Bag 1 BAG IVPB PRN (14:23)
[2018-01-26] MEDS ORDERED: Potassium Phosphate 15 MMOL in Sodium Chloride 0.9% 250 ML 250 ML IV PRN (14:23)
[2018-01-26] MEDS ORDERED: Potassium Phosphate 12 MMOL in Sodium Chloride 0.9% 250 ML 250 ML IV PRN (14:23)
[2018-01-26] MEDS ORDERED: Potassium Phosphate 9 MMOL in Sodium Chloride 0.9% 100 ML IVPB PRN (14:23)
[2018-01-26] MEDS ORDERED: Potassium Chloride 40 MEQ in Sodium Chloride 0.9% 250 ML 250 ML IVPB PRN (14:23)
[2018-01-26] MEDS ORDERED: Magnesium 2 GM/NS 0.9% 100 ML 2 GM in Premix Bag 1 BAG IVPB PRN (14:23)
[2018-01-26] MEDS ORDERED: Potassium Chloride 20 MEQ TAB PO PRN (14:23)
--- NOTE | 2018-01-26 14:29 | PDOC.PN ---
- Subjective Encounter Start Date: 01/26/18 Encounter Start Time: 14:27 Subjective: feels Ok but still not bale to move lower extremity or feel below groin lev -: RN reports Btadycardia in 20s & hypotension requiring Dopamine -: Notices leg contraction w overhead arm extension - Objective MAR Reviewed: Yes Vital Signs & Weight: Vital Signs (12 hours) Temp Pulse Pulse Pulse Pulse Resp BP 01/26/18 12:00 97.8 F 01/26/18 09:50 61 62 59 L 01/26/18 07:21 97.7 F 64 20 01/26/18 06:40 160/71 H 01/26/18 06:06 160/71 H 01/26/18 04:00 01/26/18 03:00 98.1 F BP BP BP Pulse Ox 01/26/18 12:00 01/26/18 09:50 171/87 H 118/43 L 140/55 L 01/26/18 07:21 92 L 01/26/18 06:40 01/26/18 06:06 01/26/18 04:00 93 L 01/26/18 03:00 Weight Admit Weight 141 lb Weight 141 lb Most Recent Monitor Data Heart Rate from ECG 90 NIBP 134/59 NIBP BP-Mean 92 Respiration from ECG 29 SpO2 97 I&O: 01/25/18 01/26/18 01/27/18 06:59 06:59 06:59 Intake Total 665 3459.2 1130.4 Output Total 835 1701 415 Balance -170 1758.2 715.4 Result Diagrams: 01/26/18 09:20 01/26/18 09:14 Additional Labs: labs reviewed Phys Exam - Physical Examination Constitutional: NAD HEENT: PERRLA, moist MMs, sclera anicteric, oral pharynx no lesions Neck: no nodes, no JVD, supple, full ROM Respiratory: no wheezing, no rales, no rhonchi, clear to auscultation bilateral Cardiovascular: RRR, no significant murmur Gastrointestinal: soft, non-tender, no distention, positive bowel sounds Musculoskeletal: no edema, pulses present Posturing like in legs w arm extension overhead. B/L leg paralysis & sensosry loss.Hand strength 3/5.arm4/5 b/l Lymphatic: no nodes Psychiatric: normal affect, A&O x 3 Dx/Plan (1) Acute herniation of intervertebral disc Code(s): [id number] - Status: Acute Comment: s/p emergent spinal surgery (2) Spinal cord compression Code(s): G95.20 - UNSPECIFIED CORD COMPRESSION Status: Acute (3) Sinus arrhythmia Code(s): I49.9 - CARDIAC ARRHYTHMIA, UNSPECIFIED Status: Chronic (4) Hypotension Status: Resolved Comment: Likley vasovagal due to acute cord compression.resolved (5) HTN (hypertension) Code(s): I10 - ESSENTIAL (PRIMARY) HYPERTENSION Status: Chronic (6) H/O atrial flutter Code(s): Z86.79 - PERSONAL HISTORY OF OTHER DISEASES OF THE CIRCULATORY SYSTEM Status: Chronic Comment: s/p ablation - Plan plan discussed w/ family, PT/OT, incentive spirometry, DVT proph w/SCDs cont circulatory support w Dopamine.CCU monitoring. -: May need PPM given significant bradycardia.Unkily due to vagal stimulation -: NS team notified of Posturing w Arm extension. -: cont decadron.Cont GI prophylaxis w PPI. -: cervical collar off during rest.will try to get carotid doplers * . Review of Systems - Review of Systems Constitutional: negative: fever, chills, sweats, weakness, malaise, other ENT: negative: Ear Pain, Ear Discharge, Nose Pain, Nose Discharge, Nose Congestion, Mouth Pain, Mouth Swelling, Throat Pain, Throat Swelling, Other Respiratory: negative: Cough, Dry, Shortness of Breath, Hemoptysis, SOB with Excertion, Pleuritic Pain, Sputum, Wheezing Cardiovascular: negative: chest pain, palpitations, orthopnea, paroxysmal nocturnal dyspnea, edema, light headedness, other Gastrointestinal: negative: Nausea, Vomiting, Abdominal Pain, Diarrhea, Constipation, Melena, Hematochezia, Other Genitourinary: negative: Dysuria, Frequency, Incontinence, Hematuria, Retention , Other Musculoskeletal: negative: Neck Pain, Shoulder Pain, Arm Pain, Back Pain, Hand Pain, Leg Pain, Foot Pain, Other Neurological: Weakness, Numbness - Medications/Allergies Allergies/Adverse Reactions: Allergies Allergy/AdvReac Type Severity Reaction Status Date / Time codeine Allergy Verified 04/24/13 09:41 iodine Allergy Verified 11/01/13 09:41 Medications: Current Medications Acetaminophen (Tylenol) 650 mg PO Q4H PRN PRN Reason: Headache/Fever or Pain Last Admin: 01/26/18 05:17 Dose: 650 mg Acetaminophen (Tylenol) 500 mg PO Q4H PRN PRN Reason: Mild Pain (1-3) Al Hydroxide/Mg Hydroxide (Maalox) 30 ml PO Q6H PRN PRN Reason: Heartburn or Indigestion Amlodipine/Benazepril HCl (Lotrel 5/10) 1 cap PO DAILY [facility] Last Admin: 01/26/18 11:54 Dose: Not Given Bisacodyl (Dulcolax) 10 mg PO DAILYPRN PRN PRN Reason: Constipation Calcium Carbonate (Tums) 1,000 mg PO Q4H PRN PRN Reason: Heartburn or Indigestion Clonidine (Catapres) 0.1 mg PO Q4H PRN PRN Reason: Systolic BP > 160 Last Admin: 01/26/18 06:06 Dose: 0.1 mg Dexamethasone (Decadron) 4 mg SLOW IVP Q6HR [facility] Last Admin: 01/26/18 11:53 Dose: 4 mg Docusate Sodium (Colace) 100 mg PO BID [facility] Ezetimibe (Zetia) 10 mg PO DAILY [facility] Last Admin: 01/26/18 11:49 Dose: 10 mg Famotidine (Pepcid) 20 mg PO DAILY [facility] Fenofibrate (Tricor) 145 mg PO DAILY [facility] Last Admin: 01/26/18 11:49 Dose: 145 mg Furosemide (Lasix) 20 mg PO DAILY [facility] Last Admin: 01/26/18 09:15 Dose: Not Given Hydralazine HCl (Apresoline) 10 mg SLOW IVP Q4H PRN PRN Reason: Systolic BP > 170 Last Admin: 01/26/18 06:40 Dose: 10 mg Sodium Chloride (Normal Saline 0.9%) 1,000 mls @ 50 mls/hr IV .Q20H [facility] Last Admin: 01/25/18 19:19 Dose: 1,000 mls Cefazolin Sodium 2 gm/ Sodium (Chloride) 100 mls @ 200 mls/hr IVPB Q8HR [facility] Last Admin: 01/26/18 13:18 Dose: 100 mls Isoproterenol HCl 2 mg/ (Dextrose/Water) 500 mls @ 0 mls/hr IVPB INF JERI; Titrate PRN Reason: Protocol Last Admin: 01/26/18 11:40 Dose: 500 mls Potassium Chloride 40 meq/ (Sodium Chloride) 270 mls @ 135 mls/hr IVPB ASDIR PRN PRN Reason: FOR SERUM K+ 2.5 - 3.5 Potassium Chloride 40 meq/ (Device) 100 mls @ 50 mls/hr IVPB ASDIR PRN PRN Reason: FOR SERUM K+ 2.5 - 3.5 Magnesium Sulfate 1 gm/ Sodium (Chloride) 102 mls @ 102 mls/hr IV PRN PRN PRN Reason: MAG LEVEL 1.4 - 2.0 Magnesium Sulfate 2 gm/ Device 100 mls @ 100 mls/hr IVPB ASDIR PRN PRN Reason: MAGNESIUM < 1.4 Potassium Phosphate 9 mmol/ (Sodium Chloride) 103 mls @ 25.75 mls/hr IVPB ASDIR PRN PRN Reason: Phosphate 1.0-1.8 Potassium Phosphate 12 mmol/ (Sodium Chloride) 254 mls @ 63.5 mls/hr IV ASDIR PRN PRN Reason: Serum phosphate 0.5-0.9 Potassium Phosphate 15 mmol/ (Sodium Chloride) 255 mls @ 63.75 mls/hr IV ASDIR PRN PRN Reason: Serum Phos < 0.5 Magnesium Oxide (Magnesium Oxide) 400 mg PO BIDPRN PRN PRN Reason: FOR SERUM MAG 1.4 - 2.0 Magnesium Oxide (Magnesium Oxide) 800 mg PO PRN PRN PRN Reason: FOR SERUM MAG < 1.4 Miscellaneous Medication (Phos-Nak) 1 pkt PO TIDPRN PRN PRN Reason: FOR PHOS LEVEL 1.0 - 1.8 Miscellaneous Medication (Phos-Nak) 2 pkt PO TIDPRN PRN PRN Reason: FOR PHOS LEVEL 0.5 - 1.0 Nitroglycerin (Nitrostat) 0.4 mg SL Q5MIN PRN PRN Reason: Chest Pain Ccu Electrolyte (Replacement Protocol) 0 each FS PRN PRN PRN Reason: FOR ELECTROLYTE REPLACEMENT Ondansetron HCl (Zofran) 4 mg IVP Q6H PRN PRN Reason: Nausea/Vomiting Last Admin: 01/24/18 18:30 Dose: 4 mg Pantoprazole Sodium (Protonix) 40 mg PO DAILY [facility] Last Admin: 01/26/18 09:16 Dose: 40 mg Colesevelam Hcl [ (Welchol] 1,875 Mg) 0 each PO BID [facility] Last Admin: 01/26/18 09:17 Dose: 1 each Potassium Chloride (K-Dur) 40 meq PO ASDIR PRN PRN Reason: FOR SERUM K+ 2.5 - 3.5 Potassium Chloride (Klor-Con) 40 meq PER TUBE ASDIR PRN PRN Reason: FOR SERUM K+ 2.5-3.5 Psyllium Hydrophilic Mucilloid (Metamucil) 1 pk PO DAILYPRN PRN PRN Reason: Constipation Senna (Senokot) 2 tab PO HSPRN PRN PRN Reason: Constipation Tizanidine HCl (Zanaflex) 4 mg PO TID PRN PRN Reason: Muscle Spasm Tramadol HCl (Ultram) 50 mg PO Q6H PRN PRN Reason: Mild Pain (1-3) Last Admin: 01/26/18 13:18 Dose: 50 mg
--- NOTE | 2018-01-26 15:54 | ULT ---
ULTRASOUND WITH DOPPLER DUPLEX VENOUS LOWER EXTREMITIES BILATERAL: HISTORY: An 87-year-old female with bilateral lower extremity edema. TECHNIQUE: Color flow Doppler, spectral waveform analysis of pulsed Doppler, and townsend-scale imaging with george florencio and augmentation were used to evaluate the bilateral common femoral, femoral, popliteal, posteri or tibial, and superficial femoral veins; and the proximal portions of the profunda femoral and great er saphenous veins. FINDINGS: There is normal compressibility, demonstration of blood flow by color Doppler and pulsed Doppler, and response to augmentation, in all interrogated veins. IMPRESSION: Negative. No deep vein thrombosis in the bilateral lower extremities. jn[] POS: RONDA
[2018-01-26] MEDS: Sodium Chloride 0.9% 1,000 ML IV SCH (16:11)
--- NOTE | 2018-01-26 17:34 | ULT ---
CAROTID ULTRASOUND WITH CORTES SCALE AND DOPPLER DUPLEX COLOR FLOW IMAGING SPECTRAL ANALYSIS PERFORMED: CLINICAL INDICATION: Carotid plaque with history of bruit. FINDINGS: There is mild scattered atherosclerotic calcification of the carotid arteries. PEAK SYSTOLIC VELOCITY (CM/S): Right CCA 118 Left CCA 136 Right ICA 98 Left ICA 103 There is antegrade flow within the visualized left vertebral artery. There is nonvisualization of th e right vertebral artery due to overlying bandaging. IMPRESSION: 1. No hemodynamically significant stenosis of the right internal carotid artery. 2. No hemodynamically significant stenosis of the left internal carotid artery. 3. Nonvisualization of the right vertebral artery for comment. POS: RONDA
--- NOTE | 2018-01-26 18:20 | PRG ---
DATE OF SERVICE: 01/26/2018 SUBJECTIVE: Ms. Chavez is postoperative day 1 from emergent anterior diskectomy for acute worsening of subacute myelopathy. This morning, she is alert. She has somewhat sullen, I given a current stat e; however, she does raise both upper extremities antigravity more briskly than yesterday when she go es above a certain level. I suspect she has traction of her cord and has essentially Lhermitte's constantino iant in her all 4 limbs. I think just simply swelling in the cord with any traction by moving extrem ities; however, she does have improvement in her light touch sensation and toward her abdomen and thr oughout her legs this and that this is an improvement compared to yesterday where she did not have se nsation intact and only had improvement in her upper extremity function. 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 She continues to be plegic in her lower extremities. Her wound is healing well and I have removed the drain. We will arrange for an ultrasound of lower extr emities today and likely consider initiation of low dose Lovenox tomorrow given her risk of DVT. At this point, from a neurosurgical standpoint, rehab is going to be the course going forward, although there is concern of sick sinus syndrome and the need for possible pacemaker. She will continue to be observed in the ICU. I would be fine lifting any MAP requirements and we will begin the Decadron ta per tomorrow.
--- NOTE | 2018-01-26 18:46 | PRG ---
DATE OF SERVICE: 01/26/2018 SUBJECTIVE: Ms. Khoury still has intermittent periods of bradycardia. She was put back on dopamine last night. I have talked to Dr. Adam and if found an EKG in the chart where she has been gettin g bradycardic intermittently, but not symptomatic and this has been followed by Dr. Colón for some t gene. She remains afebrile. Blood pressure drops in the 90s when she sleeps for most part of blood pressure is in the 140s. OBJECTIVE: LUNGS: Clear. HEART: Regular rhythm. ABDOMEN: Soft. She has not regained any motor function to ____ legs, but she has had improvement of her sensation ov er abdominal wall and sensation in her legs. She had a Doppler venogram done today showed no evidence of DVT in either lower extremity. IMPRESSION: 1. Status post acute disk herniation leading to paraplegia while in an MRI scanner with post-MRI car sukhdeep spinal shock. 2. Sick sinus is clinically stable. I put Isoproterenol as p.r.n. drug for bradycardia, but only if she to be used only if she symptomatic. Dopamine is running in through hand IV and so she discontin ued dopamine. If she drops her blood pressure, she needs some intravascular volume resuscitation ___ _ pressors in my opinion. I will be happy to continue to follow with her, the other doctors are met with her family and answered all their questions.
[2018-01-26] MEDS: Docusate 100 MG CAP PO SCH (19:52)
[2018-01-26] MEDS: Ondansetron HCl/PF 4 MG/2 ML Vial IVP PRN (20:15)
[2018-01-26] MEDS ORDERED: Sodium Chloride 0.9% 500 ML IV SCH (22:00)
[2018-01-27 04:29] LABS: Hemoglobin 10.2 g/dL (12.0-16.0)
[2018-01-27 04:53] LABS: Anion Gap 12 mmol/L (10-20); BUN (Urea Nitrogen) 17 mg/dL (9.8-20.1); Calc. Creatinine Clearance 63 mL/min (70-130); Calcium 8.6 mg/dL (7.8-10.44); Carbon Dioxide 21 mmol/L (23-31); Chloride 101 mmol/L (98-107); Estimated GFR-MDRD 86; Glucose 144 mg/dL (83-110); Potassium 3.7 mmol/L (3.5-5.1); Sodium 130 mmol/L (136-145)
[2018-01-27] MEDS: Dexamethasone 4 mg/ml Vial SLOW IVP SCH ×4 (05:03→23:02)
[2018-01-27] MEDS: CEFAZOLIN 2 GM in Sodium Chloride 0.9% 100 ML IVPB SCH ×3 (05:03→21:03)
[2018-01-27] MEDS: Amlodipine 5 mg/Benazepril 10 mg CAP PO SCH (08:43)
[2018-01-27] MEDS: Famotidine 20 MG TAB PO SCH (08:44)
[2018-01-27] MEDS: Docusate 100 MG CAP PO SCH ×2 (08:44→19:37)
[2018-01-27] MEDS: Ezetimibe 10 MG TAB PO SCH (08:44)
[2018-01-27] MEDS: Furosemide 20 MG TAB PO SCH (08:44)
[2018-01-27] MEDS: Colesevelam Hcl [Welchol] 1,875 MG PO SCH ×2 (08:45→19:38)
[2018-01-27] MEDS: Fenofibrate Nanocrystallized 145 MG TAB PO SCH (08:50)
--- NOTE | 2018-01-27 09:40 | PRG ---
DATE OF SERVICE: 01/27/2018 SUBJECTIVE: Ms. Khoury is feeling better, no complaints. She is off Isuprel. OBJECTIVE: VITAL SIGNS: Her blood pressure is 168/70; the pulse is 58, sinus. LUNGS: Clear. CARDIAC: Normal S1, normal S2. No new murmur, rub, or gallop. ABDOMEN: Soft and nontender. EXTREMITIES: No clubbing, cyanosis, or edema. ASSESSMENT: 1. Status post surgery, cervical spine. 2. Some element of sick sinus syndrome. 3. Recent vasovagal episodes. 4. Hypertension. PLAN: 1. Resume blood pressure medicine. 2. Continue to follow. 3. If she does develop symptomatic bradycardia, pacemaker would be indicated, but at this point pace maker is not indicated. 4. Mild aortic stenosis. Continue to follow. 5. We would recommend the patient when she leaves this area go to the telemetry area. ADDITIONAL INFORMATION: The patient has had recurrent episodes of syncope at home. This is relayed to me by the patient's nurse. The patient will need to be monitored. If she does have evidence of b radycardia or pauses, pacemaker would need to be indicated. For now, I have only seen bradycardia wh en she was having pain.
--- NOTE | 2018-01-27 10:30 | PDOC.PN ---
- Subjective Encounter Start Date: 01/27/18 Encounter Start Time: 10:28 Subjective: some increased sensation in legs, increased strength in arms - Objective MAR Reviewed: Yes Vital Signs & Weight: Vital Signs (12 hours) Temp Pulse Resp Pulse Ox 01/27/18 07:25 98.3 F 54 L 18 96 01/27/18 07:00 98.3 F 01/27/18 03:00 98.2 F 01/26/18 23:00 98.3 F Weight Admit Weight 141 lb Weight 141 lb Most Recent Monitor Data Heart Rate from ECG 58 NIBP 182/72 NIBP BP-Mean 98 Respiration from ECG 26 SpO2 96 I&O: 01/26/18 01/27/18 01/28/18 06:59 06:59 06:59 Intake Total 3459.2 4134.0 240 Output Total 1701 2310 280 Balance 1758.2 1824.0 -40 Result Diagrams: 01/27/18 04:17 01/27/18 04:17 Phys Exam - Physical Examination Neck: no JVD Respiratory: clear to auscultation bilateral Cardiovascular: RRR, no significant murmur Gastrointestinal: soft, positive bowel sounds Musculoskeletal: no edema qudriplegia, spastic in arms, flaccid in legs Dx/Plan (1) Sick sinus syndrome Code(s): I49.5 - SICK SINUS SYNDROME Status: Acute (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
--- NOTE | 2018-01-27 13:15 | PRG ---
DATE OF SERVICE: 01/27/2018 SUBJECTIVE: Ms. Khoury is afebrile. She has no complaints. She is intermittently bradycardic, but this is a longstanding problem. No interventions are planned by Cardiology. Heart rates in the 50s with Isuprel on standby, but I have recommended that we use it only if the patient is symptomatic. B lood pressure is actually mildly elevated today. OBJECTIVE: LUNGS: Clear. HEART: Regular rhythm. ABDOMEN: Soft. NEUROLOGIC: She still has no motor function for all practical purposes of her lower extremities. Sh e does have sensation to light touch down to her feet. IMPRESSION: Acute paraplegia, related to a disk herniation, status post decompression emergently Sat night. PLAN: Continue supportive care in the Critical Care Unit.
[2018-01-27] MEDS: Sodium Chloride 0.9% 1,000 ML IV SCH (13:19)
[2018-01-27] MEDS: cloNIDine 0.1 MG TAB PO PRN (21:03)
[2018-01-27] MEDS: Acetaminophen 500 MG TAB PO PRN (21:27)
[2018-01-28] MEDS: hydrALAZINE 20 MG/ML VIAL SLOW IVP PRN (01:18)
[2018-01-28] MEDS: CEFAZOLIN 2 GM in Sodium Chloride 0.9% 100 ML IVPB SCH (05:02)
[2018-01-28] MEDS: Dexamethasone 4 mg/ml Vial SLOW IVP SCH ×3 (05:03→17:33)
[2018-01-28] MEDS: Sodium Chloride 0.9% 1,000 ML IV SCH (08:28)
[2018-01-28] MEDS: Ezetimibe 10 MG TAB PO SCH (08:28)
[2018-01-28] MEDS: Fenofibrate Nanocrystallized 145 MG TAB PO SCH (08:28)
[2018-01-28] MEDS: Famotidine 20 MG TAB PO SCH (08:28)
[2018-01-28] MEDS: Amlodipine 5 mg/Benazepril 10 mg CAP PO SCH (08:28)
[2018-01-28] MEDS: Colesevelam Hcl [Welchol] 1,875 MG PO SCH ×2 (08:29→20:28)
[2018-01-28] MEDS: Docusate 100 MG CAP PO SCH ×2 (08:29→20:28)
[2018-01-28] MEDS: Furosemide 20 MG TAB PO SCH (08:29)
--- NOTE | 2018-01-28 09:26 | PRG ---
DATE OF SERVICE: 01/28/2018 Ms. Khoury is doing well. She has had no bradycardia. PHYSICAL EXAMINATION: VITAL SIGNS: Blood pressure 176/79, pulse 80, it is regular. LUNGS: Clear. CARDIAC: Normal S1, normal S2. ABDOMEN: Soft, nontender. EXTREMITIES: There is no edema. ASSESSMENT: 1. Postoperative status for cervical spine disease with the bulging disk causing paralysis. The pat ient is improving clinically. 2. Hypertension. 3. No further bradycardia. PLAN: 1. Increase as benazepril with amlodipine to 5 mg of amlodipine and 20 mg of benazepril. 2. Okay to move to telemetry.
--- NOTE | 2018-01-28 10:41 | PDOC.PN ---
- Subjective Encounter Start Date: 01/28/18 Encounter Start Time: 10:39 Subjective: alert, improving - Objective MAR Reviewed: Yes Vital Signs & Weight: Vital Signs (12 hours) Temp Pulse Resp BP Pulse Ox 01/28/18 09:50 176/79 H 01/28/18 07:08 98.3 F 65 19 94 L 01/28/18 07:00 98.3 F 01/28/18 03:00 97.6 F 01/28/18 01:18 181/73 H 01/27/18 23:00 98.0 F Weight Admit Weight 141 lb Weight 141 lb Most Recent Monitor Data Heart Rate from ECG 55 NIBP 149/63 NIBP BP-Mean 106 Respiration from ECG 21 SpO2 96 I&O: 01/27/18 01/28/18 01/29/18 06:59 06:59 06:59 Intake Total 4134.0 2941 640 Output Total 2310 3135 510 Balance 1824.0 -194 130 Result Diagrams: 01/27/18 04:17 01/27/18 04:17 Phys Exam - Physical Examination Neck: no JVD Respiratory: clear to auscultation bilateral Cardiovascular: RRR, no significant murmur Gastrointestinal: soft, non-tender, positive bowel sounds Musculoskeletal: no edema strenth in UE improving, min vascular physician strength flaccid LE, @ DTRs, toes upgoing, some sensation in feet Dx/Plan (1) Sick sinus syndrome Code(s): I49.5 - SICK SINUS SYNDROME Status: Acute (2) Quadriplegic spinal paralysis Code(s): 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
--- NOTE | 2018-01-28 11:34 | PRG ---
DATE OF SERVICE: 01/28/2018 A 77-year-old female status post emergency cervical surgery for acute paraplegia. Herniated disk, status post decompression. She is awake, alert, responsive. Denies any pain or disc omfort. PHYSICAL EXAMINATION: VITAL SIGNS: Sats are 90% on room air, temperature 98, blood pressure is 160/72, respiration rate 18 . CHEST: No wheezing. CARDIAC: Normal S1, S2. ABDOMEN: Soft, no masses. Lab was unremarkable. Chemistry profile is otherwise unremarkable. IMPRESSION: 1. Acute paraplegia status post decompression. 2. Hypertension. PLAN: Continue aggressive PT and supportive care. Deep venous thrombosis prophylaxis. I will follow.
--- NOTE | 2018-01-28 12:28 | PRG ---
DATE OF SERVICE: 01/28/2018 Ms. Khoury is now postop day 4 from ACDF. She continues to demonstrate improvement in her C7 quadrip aresis. She is improving in regards to her hand intrinsic function. She raises both upper extremiti es antigravity. She feels a sensation in her legs and will even have jolts of movement in her legs, as well. I would be fine with transfer to the floor. We will initiate low dose Lovenox and rehab wi ll be the next step.
[2018-01-28] MEDS: Enoxaparin Sodium 30 MG/0.3 ML SYRINGE SC SCH (20:28)
[2018-01-29] MEDS: Dexamethasone 4 mg/ml Vial SLOW IVP SCH ×2 (00:07→05:57)
[2018-01-29] MEDS: Sodium Chloride 0.9% 1,000 ML IV SCH (05:16)
--- NOTE | 2018-01-29 08:40 | PRG ---
DATE OF SERVICE: 01/29/2018 SUBJECTIVE: This morning, awake, alert, responsive. OBJECTIVE: VITAL SIGNS: Sats are 96 on 2 liters, respirations are 14, pulse 57, temperature is 97, blood pressu re 140/78. GENERAL: She denies any pain or discomfort. NEUROLOGIC: She says she is able to feel the sensation in the lower extremities, still unable to mov e the lower extremities. CHEST: Decreased breath sounds, no wheezing. CARDIAC: Normal S1 and S2. No gallops. ABDOMEN: Soft. No masses. IMPRESSION: 1. Status post emergency surgery for a herniated cervical disk. 2. Paraplegia. PLAN: Continue Decadron. Continue supportive care and PT. Eventually placement.
--- NOTE | 2018-01-29 08:58 | PDOC.PN ---
- Subjective Encounter Start Date: 01/29/18 Encounter Start Time: 08:56 Subjective: slow improvement in ROM upper extremities - Objective MAR Reviewed: Yes Vital Signs & Weight: Vital Signs (12 hours) Temp Pulse Resp BP BP Pulse Ox 01/29/18 08:00 96.7 F L 67 16 164/77 H 97 01/29/18 04:25 97.4 F L 57 L 14 143/78 H 96 01/28/18 21:15 97.4 F L 45 L 18 97 Weight Admit Weight 141 lb Weight 148 lb 1.6 oz Most Recent Monitor Data Heart Rate from ECG 48 NIBP 114/52 NIBP BP-Mean 78 Respiration from ECG 23 SpO2 94 I&O: 01/28/18 01/29/18 01/30/18 06:59 06:59 06:59 Intake Total 2941 1970 Output Total 3135 2975 Balance -194 -1005 Result Diagrams: 01/27/18 04:17 01/27/18 04:17 Phys Exam - Physical Examination Neck: no JVD Respiratory: clear to auscultation bilateral Cardiovascular: RRR, no significant murmur Gastrointestinal: soft, non-tender Musculoskeletal: no edema quadriplegia Dx/Plan (1) Sick sinus syndrome Code(s): I49.5 - SICK SINUS SYNDROME Status: Acute (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
[2018-01-29] MEDS ORDERED: Amlodipine 5 mg/Benazepril 10 mg CAP PO SCH (09:00)
[2018-01-29] MEDS: Fenofibrate Nanocrystallized 145 MG TAB PO SCH (09:45)
[2018-01-29] MEDS: Docusate 100 MG CAP PO SCH ×2 (09:46→21:56)
[2018-01-29] MEDS: Ezetimibe 10 MG TAB PO SCH (09:46)
[2018-01-29] MEDS: Famotidine 20 MG TAB PO SCH (09:46)
[2018-01-29] MEDS: Furosemide 20 MG TAB PO SCH (09:47)
[2018-01-29] MEDS: Amlodipine 5 mg/Benazepril 20 mg CAP PO SCH (09:47)
[2018-01-29] MEDS: Colesevelam Hcl [Welchol] 1,875 MG PO SCH ×2 (09:51→21:57)
--- NOTE | 2018-01-29 10:18 | PRG ---
DATE OF SERVICE: 01/29/2018 Ms. Khoury is out on the telemetry floor now. She is able to move her arm somewhat better, still del rosario s not have use of her legs. PHYSICAL EXAMINATION: VITAL SIGNS: Her blood pressure is 164/77, pulse is generally in the 60s, but intermittently becomes severely bradycardic. The patient's heart rate yesterday was down to 30s at times during the day, i t was also down to 30s last night and then again it was 33 this morning at 4 a.m. it was 36-40 this m orning at 7. She was awake at that time. Patient reports occasional lightheadedness, but no syncope or near syncope. ASSESSMENT: 1. Status post surgery for cord compression. 2. Sick sinus syndrome with intermittent bradycardia. PLAN: I discussed with the patient I think it would be reasonable to place pacemaker, although she h as only minimal symptoms, I think she is at high risk of falling due to the intermittent bradycardia. Will discuss with Dr. Fierro.
[2018-01-29] MEDS: Dexamethasone 1 MG TAB PO SCH ×2 (12:51→17:57)
[2018-01-29] MEDS: Enoxaparin Sodium 30 MG/0.3 ML SYRINGE SC SCH (21:56)
[2018-01-30] MEDS: Dexamethasone 1 MG TAB PO SCH ×5 (00:16→23:39)
[2018-01-30] MEDS: cloNIDine 0.1 MG TAB PO PRN (04:27)
--- NOTE | 2018-01-30 08:24 | PRG ---
DATE OF SERVICE: 01/30/2018 Ms. Khoury is postoperative day 6 from a C6-C7 ACDF. She continues to demonstrate improvement every day. She is now able to hold a cup and drink out of a straw demonstrating improvement in her fine mo tor coordination. She raises her upper extremities above her shoulders with more vigor and improveme nt in strength. She has very trace movement of the right ankle and contraction of the gluteal region . Her sensation is improving as well throughout her extremities and trunk. We have removed her dres sing. The wound may be left uncovered at this point. The collar is only when she is out of bed. Th e plan is rehab. I am in support of that. We will arrange a followup in my clinic in a few weeks.
[2018-01-30] MEDS: Famotidine 20 MG TAB PO SCH (08:44)
[2018-01-30] MEDS: Ezetimibe 10 MG TAB PO SCH (08:44)
[2018-01-30] MEDS: Docusate 100 MG CAP PO SCH ×2 (08:44→20:39)
[2018-01-30] MEDS: Fenofibrate Nanocrystallized 145 MG TAB PO SCH (08:44)
[2018-01-30] MEDS: Colesevelam Hcl [Welchol] 1,875 MG PO SCH ×3 (08:45→20:39)
[2018-01-30] MEDS: Furosemide 20 MG TAB PO SCH (08:46)
--- NOTE | 2018-01-30 09:04 | PRG ---
DATE OF SERVICE: 01/30/2018 Ms. Khoury is actually doing better today. She has got improved function of her upper extremities. She was able to eat mostly by herself today, which is an improvement. She is still not moving the legs. She has no chest pain or pressure. PHYSICAL EXAMINATION. LUNGS: Clear. CARDIAC: Normal S1, normal S2. ABDOMEN: Soft, nontender. EXTREMITIES: There is no clubbing or cyanosis. She has no edema. The patient's monitor did reveal that she had heart rate of 35 this morning at 7:00 a.m. She was adrian ke at that time. ASSESSMENT: 1. Previous history of sick sinus syndrome, now continuing to have intermittent heart rates in the l ow 30s. 2. Hypertension. 3. Recent spinal cord injury status post surgery. PLAN: 1. Dr. Alvarez saw the patient yesterday, said that really either way could be done to either hold off on pacemaker or proceed. At this point, since she continues to have bradycardia, I think the safest thing is to go ahead and place a pacemaker. 2. Coronary artery disease, stable. 3. Hypertension continues to be treated. Dr. Fierro will be notified.
[2018-01-30] MEDS: Amlodipine 5 mg/Benazepril 20 mg CAP PO SCH (09:20)
--- NOTE | 2018-01-30 10:02 | PRG ---
DATE OF SERVICE: 01/30/2018 The patient is doing okay. She is not regaining any strength in her lower extremities, but has some feeling down there. PHYSICAL EXAMINATION: VITAL SIGNS: Temperature 96.9, pulse 41, respirations 14, O2 sat 93%. HEENT: Unremarkable. NECK: No adenopathy or JVD. LUNGS: Clear. CARDIAC: S1, S2, bradycardic. ABDOMEN: Soft. EXTREMITIES: No edema. ASSESSMENT: 1. Paraplegia. 2. Status post emergent surgery for herniated cervical disk. 3. Stable pulmonary status. PLAN: No real pulmonary issues at this point. She is scheduled for pacemaker placement tomorrow. W sebastian will sign off the case. Please recall if further assistance needed.
--- NOTE | 2018-01-30 10:17 | PDOC.PN ---
- Subjective Encounter Start Date: 01/30/18 Encounter Start Time: 10:15 Subjective: increased dexterity, strength in hands, arms - Objective Vital Signs & Weight: Vital Signs (12 hours) Temp Pulse Resp BP BP Pulse Ox 01/30/18 07:40 96.9 F L 41 L 14 152/68 H 93 L 01/30/18 04:30 98.1 F 49 L 18 188/80 H 93 L 01/30/18 04:27 188/80 H Weight Admit Weight 141 lb Weight 151 lb 4.8 oz Most Recent Monitor Data Heart Rate from ECG 48 NIBP 114/52 NIBP BP-Mean 78 Respiration from ECG 23 SpO2 94 I&O: 01/29/18 01/30/18 01/31/18 06:59 06:59 06:59 Intake Total 1970 1110 Output Total 2975 2700 Balance -1005 -1590 Result Diagrams: 01/27/18 04:17 01/27/18 04:17 Phys Exam - Physical Examination Neck: no JVD Respiratory: clear to auscultation bilateral Cardiovascular: RRR barycardia into high 20s Gastrointestinal: soft, positive bowel sounds Musculoskeletal: no edema Dx/Plan (1) Sick sinus syndrome Code(s): I49.5 - SICK SINUS SYNDROME Status: Acute (2) Quadriplegic spinal paralysis Code(s): G82.50 - QUADRIPLEGIA, UNSPECIFIED Status: Acute (3) Acute herniation of intervertebral disc Code(s): IZC0690 - Status: Acute Comment: s/p emergent spinal surgery (4) HTN (hypertension) Code(s): I10 - ESSENTIAL (PRIMARY) HYPERTENSION Status: Chronic Qualifiers: Hypertension type: essential hypertension Qualified Code(s): I10 - Essential (primary) hypertension - Plan pacer today -: cont PT/OT- planned transfer to rehab * .
--- NOTE | 2018-01-30 11:18 | CON ---
ELECTROPHYSIOLOGY CONSULTATION REPORT DATE OF CONSULTATION: 01/29/2018 REFERRING PHYSICIAN: Dr. Colón. I am seeing Ms. 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 Her problems are: 1. Marked sinus bradycardia. 2. Quadriplegic spinal paralysis. 3. Acute herniation to intervertebral disk, requiring an emergent spinal surgery in 01/2018. 4. History of hypertension. 5. Valvular heart disease with moderate MR, mild , mild TR, but LVEF 60-65% on echocardiogram from 01/25/2018. 6. History of hypertension. ALLERGIES: CODEINE, IODINE, SIMVASTATIN. MEDICATIONS AT HOME: Include Lotrel, vitamin C, aspirin, calcium carbonate, Welchol, Dramamine, Bhavana dryl, Zetia, fenofibrate, fish oil supplements, furosemide, Aleve, omeprazole, Metamucil, vitamin B6, and tramadol. SUBJECTIVE: Ms. Khoury is here with symptoms of an acute lower extremity weakness and numbness with MRI was performed and she developed hypertension and bradycardia along with some paralysis. She was found to have significant cord compression and underwent an emergent cervical laminectomy last night. She has sinus bradycardia at 45 beats per minute at that time. She was diagnosed with vasovagal ev ents, but subsequently, she still has heart rates in the 40s. Now recovering from the surgery 5 days out, she still developing episodes of heart rates below 40 beats per minute, very short albeit down 36 beats per minute without provocation and without much symptoms while lying in the bed. Her recove ry is still complicated by significant paralysis below the waist level. She denies any discomfort. No chest pains, no fever, chills, or cough. No stroke-like symptoms, no neurological deficits. No P ND or orthopnea noted. PAST MEDICAL HISTORY: As above. She has remote history of atrial flutter and ablation in 2012. She also reports episode of syncope in 2014, also following a surgery. She has no fever, chills, or cou gh. No signs of infection. No PND or orthopnea. REVIEW OF SYSTEMS: Rest of 12-point system otherwise unremarkable. SOCIAL HISTORY: The patient denies smoking, EtOH, or drug abuse. FAMILY HISTORY: Noncontributory. OBJECTIVE DATA: VITAL SIGNS: Blood pressure is 190/77, heart rate 43, respirations 16, temperature 96.7 degrees Fahr enheit. GENERAL: Reveals an alert, oriented woman, in no apparent distress. NECK: Supple. Jugular veins not distended. CHEST: Coarse without crackles. CARDIOVASCULAR: Heart sounds are regular to rate and rhythm. No murmur or gallop. ABDOMEN: Benign. Bowel sounds positive. EXTREMITIES: Lower extremities without edema, clubbing, or cyanosis. Pulses are adequate neurologic ally with a lower extremity hemiplegia. Paresis in lower extremity noted. SKIN: Without rash. DATABASE: The EKG is reviewed, revealing sinus rhythm with episodic sinus bradycardia. Rare PVCs ar e seen. Evidence of bradycardia noted. No AV block is documented, was seen in sinus bradycardia. LABORATORY AND DIAGNOSTIC DATA: Sodium 130, potassium 3.7, BUN is 17, creatinine 0.65. Troponin I 0 .11 initially. White cell count 11.7 on admission, hemoglobin 12, platelet count is 298,000. Hemogl obin is stable, was 10.2 on 01/27/2018. Thoracic spine MRI from 01/23/2018, no significant abnormali ties of the thoracic spine, but the cervical spine reveals acute disk herniation at C6-C7 level, paula re central canal stenosis. ASSESSMENT AND PLAN: Ms. Khoury is a very pleasant 87-year-old woman with prior history of syncopal spells about 4 years ago. She reports no significant dizzy spells in between, but now presenting wit h acute C6 level disk herniation, which required emergent laminectomy. Post-surgery, she still remai ns with paralysis in lower extremity. She has significant bradyarrhythmias, although lying down, she is not markedly symptomatic, some of the bradyarrhythmias are also during the daytime. Reason for her bradycardia could be partially due to sinus node disease, but also I suspect unopposed vagal tone may be also contributing to this. mildly affected with the subacute disk herniatio n. I discussed these issues with the patient. At this point, I would recommend continued observation on telemetry. Naturally at this point with these heart rate levels, it is not safe to ambulate her. O n the other hand, she still has significant paralysis and she is bedbound anyway. So far, no definit e symptoms are detected. If her mobility improves and her heart rate remains slow, I think additiona l pacemaker will not unreasonable. On the other hand, there is also a chance that there might be carly e improving sympathetic tone increases her heart rates. We will discuss with Dr. Colón. Thank you again for allowing me to participate in the care of this patient.
[2018-01-30] MEDS ORDERED: CEFAZOLIN 1 GM VIAL ONE ×2 (12:23→13:17)
[2018-01-30] MEDS ORDERED: Gentamicin 80 MG/2 ML VIAL ONE (12:23)
--- NOTE | 2018-01-30 13:45 | CCL ---
PACEMAKER INSERTION: Date: 01/30/18 This is an 87-year-old female with symptomatic bradycardia who was advised to undergo dual chamber pa cemaker insertion. She was taken to cardiac catheterization lab, and prepped and draped in the steril e fashion, where she underwent the procedure without difficulties or complications. She was implanted with a dual chamber [employer]onic Mae pacemaker. There were two screw-in leads placed, one in the atri um and one in the ventricle. There were no complications or difficulties encountered. The pacemaker w as set with the upper rate at 120 and lower rate was set at 60. The patient tolerated the procedure w ell.
[2018-01-30] MEDS: Acetaminophen 500 MG TAB PO PRN (15:29)
--- NOTE | 2018-01-30 15:43 | RAD ---
CHEST ONE VIEW: 01/30/18 HISTORY: Pacemaker placement. FINDINGS: The cardiac silhouette is magnified by projection. Pulmonary vasculature is unremarkable. Mediastinum midline with aortic calcification. Dual lead left subclavian cardiac electronic device is now in calos ce. No evidence of pneumothorax. Postoperative changes lower cervical spine. IMPRESSION: Left subclavian cardiac electronic device is in good radiographic position. POS: SHAHIDA
--- NOTE | 2018-01-30 16:37 | PDOC.CTH ---
Cardiology Progress Note - Subjective EP progress note: Patient seen and evaluated. No new cardiac concerns or complaints today. Denies heart racing, palpitations, chest pain/pressure, dizziness, or passing out. No stroke like symptoms. - Objective Vital Signs Temp Pulse Resp BP BP Pulse Ox 01/30/18 08:00 96.9 F L 41 L 14 93 L 01/30/18 07:40 96.9 F L 41 L 14 152/68 H 93 L 01/30/18 04:30 98.1 F 49 L 18 188/80 H 93 L 01/30/18 04:27 188/80 H Admit Weight 141 lb Weight 151 lb 4.8 oz 01/29/18 01/30/18 01/31/18 06:59 06:59 06:59 Intake Total 1970 1110 Output Total 2975 2700 Balance -1005 -1590 - Physical Examination General/Neuro: alert & oriented x3, NAD Neck: no JVD present Lungs: CTA Heart: RRR Abdomen: NT/ND, soft - Telemetry Telemetry Rhythm: sinus bradycardia - Labs Result Diagrams: 01/27/18 04:17 01/27/18 04:17 Troponin/CKMB CK-MB (CK-2) 2.2 ng/mL (0-6.6) 01/24/18 09:09 Troponin I 0.011 ng/mL (< 0.028) 01/24/18 18:01 - Assessment/Plan 1. Sinus node dysfunction with marked bradycardia- recommend pacemaker, to be placed by Dr Fierro today 2. quadriplegic spinal paralysis
[2018-01-31] MEDS: Dexamethasone 1 MG TAB PO SCH ×2 (05:51→12:01)
--- NOTE | 2018-01-31 08:43 | PRG ---
DATE OF SERVICE: 01/31/2018 Ms. Khoury is in good spirits today. She is awake and alert. No chest pain or pressure. She underw ent successful dual-chamber pacemaker insertion yesterday. PHYSICAL EXAMINATION: VITAL SIGNS: Blood pressure 140/70, pulse is 60, it is atrial paced ventricular sensed. LUNGS: Clear. CARDIAC: Normal S1, normal S2. ABDOMEN: Soft, nontender. EXTREMITIES: There is no edema. She moves her upper extremities well. The lower extremities are no t yet functional. ASSESSMENT: 1. Status post pacemaker insertion. 2. Hypertension, improved. 3. Hyponatremia. Sodium of 130. 4. Bradycardia, resolved status post pacemaker insertion. PLAN: 1. Resume enoxaparin 40 mg subcutaneously daily starting tomorrow. 2. At this point, we will discontinue the gemfibrozil. Her triglycerides are 100. I do not see any evidence of elevated triglyceride in several years. Could consider repeating this in the future to recheck, but now I do think it is an essential medicine. 3. She is on amlodipine 5 mg and benazepril 20 mg a day. 4. If needed, could resume furosemide at a later time. 5. Also if needed, could add low dose beta-antionette now that she has a pacemaker. 6. Okay, could go to rehab. 7. We will sign off at this time. Please reconsult if needed.
[2018-01-31] MEDS: Amlodipine 5 mg/Benazepril 20 mg CAP PO SCH (08:55)
[2018-01-31] MEDS: Docusate 100 MG CAP PO SCH (08:55)
[2018-01-31] MEDS: Ezetimibe 10 MG TAB PO SCH (08:56)
[2018-01-31] MEDS: Famotidine 20 MG TAB PO SCH (08:56)
[2018-01-31] MEDS: Colesevelam Hcl [Welchol] 1,875 MG PO SCH (08:59)
[2018-01-31 09:00] LABS: Hemoglobin 12.4 g/dL (12.0-16.0); Mean Corpuscular HGB CONC 34.5 g/dL (32.0-36.0); Mean Corpuscular Hemoglobin 33.5 pg (27.0-31.0); Mean Corpuscular Volume 97.2 fL (78.0-98.0); Platelet Count 240 thou/uL (130-400); RBC Distribution Width 11.4 % (11.5-14.5); Red Blood Cell (RBC) Count 3.69 mill/uL (4.20-5.40)
[2018-01-31 09:40] LABS: Anion Gap 11 mmol/L (10-20); BUN (Urea Nitrogen) 19 mg/dL (9.8-20.1); Calc. Creatinine Clearance 62 mL/min (70-130); Calcium 8.8 mg/dL (7.8-10.44); Carbon Dioxide 29 mmol/L (23-31); Chloride 96 mmol/L (98-107); Eosinophils 1 % (0-10); Estimated GFR-MDRD 82; Glucose 159 mg/dL (83-110); Lymphocytes 14 % (21-51); MDiff Complete? YES; Monocytes 4 % (0-10); Neutrophil 78 % (42-75); Potassium 3.7 mmol/L (3.5-5.1); RBC Morphology Normal; Reactive Lymphocytes 3 % (0-10); Sodium 132 mmol/L (136-145)
[2018-01-31 11:33] VITALS: BP 155/76; TEMP 97.8
[2018-01-31 12:51] VITALS: BMI 26.6
--- NOTE | 2018-01-31 13:02 | PDOC.CTH ---
Cardiology Progress Note - Subjective EP progress note: Patient seen and evaluated. No new cardiac concerns or complaints today. Denies heart racing, palpitations, chest pain/pressure, dizziness, or passing out. No stroke like symptoms. Doing well after PPM implant yesterday - Objective Vital Signs Temp Pulse Resp BP BP BP Pulse Ox 01/31/18 11:33 97.8 F 61 18 155/76 H 93 L 01/31/18 08:06 98.1 F 60 20 167/82 H 92 L 01/31/18 08:05 98.1 F 60 20 01/31/18 04:10 98.0 F 61 17 141/73 H 141/73 H 92 L Admit Weight 141 lb Weight 146 lb 01/30/18 01/31/18 02/01/18 06:59 06:59 06:59 Intake Total 1110 1960 240 Output Total 2700 8500 Balance -1590 -6540 240 - Physical Examination General/Neuro: alert & oriented x3, NAD Neck: no JVD present Lungs: CTA Heart: RRR Abdomen: NT/ND, soft - Telemetry Telemetry Rhythm: Demand pacing, NSR - Labs Result Diagrams: 01/31/18 08:43 01/31/18 08:43 Troponin/CKMB CK-MB (CK-2) 2.2 ng/mL (0-6.6) 01/24/18 09:09 Troponin I 0.011 ng/mL (< 0.028) 01/24/18 18:01 - Assessment/Plan 1. Sinus node dysfunction with marked bradycardia- s/p PPM placed by Dr Fierro yesterday. 2. Quadriplegic spinal paralysis EP signing off.
[2018-01-31] MEDS ORDERED: Dexamethasone 1 MG TAB PO SCH (18:00)
[2018-02-01] MEDS ORDERED: Furosemide 20 MG TAB PO SCH (09:00)
[2018-02-01] MEDS ORDERED: Fenofibrate Nanocrystallized 145 MG TAB PO SCH (09:00)
[2018-02-01] MEDS ORDERED: Ezetimibe 10 MG TAB PO SCH (09:00)
[2018-02-01] MEDS ORDERED: Enoxaparin Sodium 40 MG/0.4 ML SYRINGE SC SCH (09:00)
[2018-02-02] MEDS ORDERED: Dexamethasone 1 MG TAB PO SCH (23:59)
== END 2018-01-31 14:55 | DRG 453 ==
LOC: SCSER 08:07 → OBSVTOIN 12:02 → 2SE 12:02 → CCU 18:18 → 2NO 01-28 20:48
PROVIDERS: ADMIT Internal Medicine; ATTEND Internal Medicine
PROC: 0RB Upper Joints, Excision (ICD-10-PCS; principal; 2018-01-24)
PROC: 0RG13A0 Fusion of Cervical Vertebral Joint with Interbody Fusion Device, Anterior Approach, Anterior Column, Percutaneous Approach (ICD-10-PCS; 2018-01-24)
PROC: 0RG Upper Joints, Fusion (ICD-10-PCS; 2018-01-24)
PROC: 0JH606Z Insertion of Pacemaker, Dual Chamber into Chest Subcutaneous Tissue and Fascia, Open Approach (ICD-10-PCS; 2018-01-30)
PROC: 02H63JZ Insertion of Pacemaker Lead into Right Atrium, Percutaneous Approach (ICD-10-PCS; 2018-01-30)
PROC: 02HK3JZ Insertion of Pacemaker Lead into Right Ventricle, Percutaneous Approach (ICD-10-PCS; 2018-01-30)
DX: M50.223 Other cervical disc displacement at C6-C7 level (principal); G82.50 Quadriplegia, unspecified; E87.1 Hypo-osmolality and hyponatremia; I25.10 Atherosclerotic heart disease of native coronary artery without angina pectoris; I10 Essential (primary) hypertension; Z85.3 Personal history of malignant neoplasm of breast; E78.5 Hyperlipidemia, unspecified; I44.0 Atrioventricular block, first degree; M54.10 Radiculopathy, site unspecified; I49.5 Sick sinus syndrome; M54.12 Radiculopathy, cervical region; R00.1 Bradycardia, unspecified; Z87.11 Personal history of peptic ulcer disease; I08.3 Combined rheumatic disorders of mitral, aortic and tricuspid valves
CPT/HCPCS: 33208; 36415; 36416; 70450; 70553; 71045; 72125; 72156; 72157; 72158; 76001; 80048; 80053; 80061; 82553; 83735; 84484; 85014; 85018; 85025; 86141; 86850; 86900; 86901; 93005; 93010; 93306; 93798; 93880; 93970; A4216; A9579; C1713; C1776; C1785; C1898; G8978-GP-CK; G8978-GP-CN; G8979-GP-CI; G8979-GP-CL; G8987-GO-CJ; G8988-GO-CI; J0131; J0171; J0360; J0461; J0690; J1100; J1265; J1580; J1650; J1720; J2001; J2370; J2405; J2704; J3010; J3370; J3490; J7050; J7070; J8540

== ENCOUNTER 2018-04-01 09:18 | Outpatient (CLI) | payer MEDICARE, BC ==
[2018-04-01] MEDS ORDERED: Iopamidol 370 76% 100 ML VIAL ONE (09:46)
--- NOTE | 2018-04-01 12:23 | CT ---
CT ABDOMEN WITH AND WITHOUT IV CONTRAST CT PELVIS WITH AND WITHOUT IV CONTRAST: Date: 04-01-18 History: Bladder dysfunction. Neurogenic bladder and history of hematuria. History of breast cancer. Comparison: None available. FINDINGS: There is evidence of right mastectomy. Tiny right pleural effusion is present. There is a pleural based 4 mm pulmonary nodule at the right l ateral costophrenic angle as well as an approximately 5 mm noncalcified pulmonary nodule at the poste rolateral aspect of the left lower lobe with nodular pleural based density also seen at the left late ral costophrenic angle which with this pleural density measuring approximately 6 mm. There is minimal bibasilar atelectasis. There is partial visualization of cardiac pacemaking leads overlying the region of the right atrial a ppendage and right ventricle. No renal or ureteral calculi are seen bilaterally. There is mild calicectasis to minimal right hydron ephrosis with mild dilatation of the proximal right ureter with transition seen at the level of the s acrum and also at the level where there is a fluid density cystic lesion likely related to right ovar esteban cyst measuring 2.8 cm. The calicectasis and mild dilatation of the right ureter was also present on MRI exam on 03-27-17 with cystic lesion also partially imaged within the region of the right ovary on that exam. Mild prominence of the right renal collecting system and right ureter is overall stable compared to the prior MRI exam in 2017. There are subcentimeter too small to characterize hypodense lesions in each kidney also demonstrated on prior MRI and statistically likely represent tiny cysts. No enhancing renal mass is present. Post-surgical change related to cholecystectomy are noted. The liver, spleen, pancreas, and bilateral adrenal glands demonstrate a normal CT appearance. Angel catheter is seen in partially distended urinary bladder with gas in the urinary bladder likely related to the catheterization. Uterus and left adnexal structures demonstrate a normal CT appearance for the patient's age. A few scattered colonic diverticula are seen with moderate amount of retained fecal material seen wit hin the colon. Vascular calcifications seen in the abdominal aorta and involving the iliac arteries. No free fluid, fluid collection, or lymphadenopathy seen in the abdomen or pelvis. Degenerative changes are noted in the spine. IMPRESSION: 1. Mild right hydronephrosis and proximal hydroureter with a few prominent kinks within the most prox imal right ureter. There is transition of the ureter to a more normal caliber at the L5-S1 level whic h is also the site of a right adnexal cystic lesion which demonstrates fluid attenuation and likely r epresents an ovarian cyst. The prominence of the right renal collecting system and cystic structure w ithin the region of the right ovary was present on the MRI exam on 03-27-17, but better visualized on today's exam. 2. No enhancing renal mass is seen, and no renal or ureteral calculi are seen bilaterally. 3. Subcentimeter too small to characterize hypodense lesions in each kidney, statistically likely rep resenting cysts. 4. Tiny bibasilar pulmonary nodules measuring 4 and 5 mm with larger pleural based nodular density at the left lung base measuring [address] scan of the thorax is recommended for further evalua tion given these nodular densities and patient's report history of breast cancer. 5. Tiny right pleural effusion. 6. Right mastectomy. 7. Cholecystectomy. POS: RONDA
== END 2018-04-01 09:19 | disposition home or self-care (01) ==
LOC: CT 09:18
PROVIDERS: ATTEND Urology
DX: N31.9 Neuromuscular dysfunction of bladder, unspecified (principal); N13.4 Hydroureter; N13.30 Unspecified hydronephrosis; N28.9 Disorder of kidney and ureter, unspecified; R91.8 Other nonspecific abnormal finding of lung field; Z87.448 Personal history of other diseases of urinary system; Z96.0 Presence of urogenital implants; Z90.11 Acquired absence of right breast and nipple; Z85.3 Personal history of malignant neoplasm of breast; Z90.49 Acquired absence of other specified parts of digestive tract
CPT/HCPCS: 74178

== ENCOUNTER 2018-06-08 08:03 | Emergency (ER) | payer MEDICARE, BC ==
[2018-06-08 08:59] LABS: Bilirubin Negative (Negative); Blood, Urine Large (Negative); Clarity CLOUDY (Clear); Glucose, Urine (Dipstick) Negative (Negative); Leukocyte Large (Negative); Nitrite Negative (Negative); Protein, Urine (Dipstick) 30 mg/dL (Neg-Trace); Specific Gravity, Urine 1.006 (1.002-1.036); Urobilinogen 0.2 mg/dL (0.2-1.0)
[2018-06-08 09:05] LABS: Bacteria/HPF 1+ HPF (None Seen); Hyaline Casts/LPF 0-3 HYALINE CAST LPF (0-3 Hyaline); Pathc Cast-AUWi Flag 0.58 (0-2.49); RBC/HPF GREATER THAN 50-TNTC HPF (0-3); Squamous Epithelial None Seen HPF (0-3); WBC/HPF 21-50 HPF (0-3)
[2018-06-08] MEDS ORDERED: Nitrofurantoin Macrocrystal 50 MG CAP PO SCH (10:00)
== END 2018-06-08 10:28 | disposition home or self-care (01) ==
LOC: ERS 08:03
DX: N39.0 Urinary tract infection, site not specified (principal); E78.5 Hyperlipidemia, unspecified; I10 Essential (primary) hypertension; I25.10 Atherosclerotic heart disease of native coronary artery without angina pectoris; Z85.3 Personal history of malignant neoplasm of breast; Z79.899 Other long term (current) drug therapy
CPT/HCPCS: 81003; 81015; 87086; 99283

== ENCOUNTER 2018-06-26 08:20 | Outpatient (CLI) | payer MEDICARE, BC ==
--- NOTE | 2018-06-26 13:30 | MRI ---
MRI LUMBAR SPINE: Date: 06-26-18 Comparison: 03-27-17 History: Lumbar spine degenerative disc disease. Technique: Multiplanar, multisequence MR imaging of the lumbar spine obtained without contrast. FINDINGS: There is a round T2 hyperintense lesion within the right hemipelvis measuring 3.1 cm suggesting an ov amanda cystic lesion. Anterolisthesis of L4 on L5 noted measuring approximately 6-7 mm, stable. On the basis of five lumbar type vertebral bodies, the conus medullaris terminates at the L1 level. T12-L1: Mild disc space narrowing and disc desiccation with no significant central canal or neural fo raminal stenosis. L1-2: Mild bilateral facet hypertrophy. Disc desiccation, disc space narrowing, and mild disc bulge p resent with no significant central canal or neural foraminal stenosis. Anterior osteophyte formation noted. L2-3: Mild bilateral facet hypertrophy. There is disc desiccation with no significant central canal o r neural foraminal stenosis. L3-4: Disc desiccation. Minimal disc bulge. Mild bilateral facet hypertrophy. No significant central canal or neural foraminal stenosis. L4-5: Mild central canal stenosis. Severe bilateral facet hypertrophy. Severe right and moderate/paula re left neural foraminal stenosis, similar when compared to prior imaging. L5-S1: No significant central canal or neural foraminal stenosis. Imaged retroperitoneal structures demonstrate small bilateral renal cysts. IMPRESSION: 1. Degenerative disc disease of the lumbar spine, most prominent at L4-5 where there is stable dion listhesis as well as stable prominent bilateral neural foraminal stenosis. 2. T2 hyperintense lesion within the right hemipelvis measuring up to 3.1 cm suggesting a cystic ovar esteban lesion. This could be best assessed via follow up MRI or pelvic ultrasound. A neoplastic process is a possibility. POS: RONDA
== END 2018-06-26 08:21 | disposition home or self-care (01) ==
LOC: MRI 08:20
PROVIDERS: ATTEND Family Medicine
DX: M51.36 Other intervertebral disc degeneration, lumbar region (principal); M48.02 Spinal stenosis, cervical region; M48.8X6 Other specified spondylopathies, lumbar region; M43.16 Spondylolisthesis, lumbar region; M48.061 Spinal stenosis, lumbar region without neurogenic claudication; R93.7 Abnormal findings on diagnostic imaging of other parts of musculoskeletal system
CPT/HCPCS: 72148

== ENCOUNTER 2018-07-14 10:39 | Emergency (ER) | payer MEDICARE, BC ==
[2018-07-14 11:31] LABS: Anion Gap 13 mmol/L (10-20); BUN (Urea Nitrogen) 13 mg/dL (9.8-20.1); Calc. Creatinine Clearance 0 mL/min (70-130); Calcium 9.6 mg/dL (7.8-10.44); Carbon Dioxide 25 mmol/L (23-31); Chloride 98 mmol/L (98-107); Estimated GFR-MDRD Greater than 90; Glucose 121 mg/dL (83-110); Potassium 3.9 mmol/L (3.5-5.1); Sodium 132 mmol/L (136-145)
[2018-07-14 12:03] LABS: Bilirubin Negative (Negative); Blood, Urine Small (Negative); Clarity CLOUDY (Clear); Glucose, Urine (Dipstick) Negative (Negative); Leukocyte Large (Negative); Nitrite Negative (Negative); Protein, Urine (Dipstick) Trace mg/dL (Neg-Trace); Specific Gravity, Urine 1.007 (1.002-1.036); Urobilinogen 0.2 mg/dL (0.2-1.0)
[2018-07-14 12:06] LABS: Bacteria/HPF Rare-Few HPF (None Seen); Hyaline Casts/LPF 0-3 HYALINE CAST LPF (0-3 Hyaline); Pathc Cast-AUWi Flag 0.14 (0-2.49); Squamous Epithelial None Seen HPF (0-3)
== END 2018-07-14 13:02 | disposition home or self-care (01) ==
LOC: ERS 10:39
DX: T83.091A Other mechanical complication of indwelling urethral catheter, initial encounter (principal); I25.10 Atherosclerotic heart disease of native coronary artery without angina pectoris; E78.5 Hyperlipidemia, unspecified; I10 Essential (primary) hypertension; Z79.899 Other long term (current) drug therapy; Z79.891 Long term (current) use of opiate analgesic
CPT/HCPCS: 36415; 51702; 80048; 81001; 87077; 87086; 87186

== ENCOUNTER 2018-07-16 20:03 | Emergency (ER) | payer MEDICARE, BC ==
[2018-07-16 21:39] LABS: ALT (SGPT) 17 U/L (8-55); AST (SGOT) 25 U/L (5-34); Albumin 3.5 g/dL (3.4-4.8); Alkaline Phosphatase 61 U/L (40-150); Anion Gap 12 mmol/L (10-20); BUN (Urea Nitrogen) 14 mg/dL (9.8-20.1); Bilirubin, Total 0.5 mg/dL (0.2-1.2); CK (CPK) 32 U/L (29-168); Calc. Creatinine Clearance 0 mL/min (70-130); Calcium 9.3 mg/dL (7.8-10.44); Carbon Dioxide 25 mmol/L (23-31); Chloride 98 mmol/L (98-107); Estimated GFR-MDRD Greater than 90; Globulin 2.3 g/dL (2.4-3.5); Glucose 63 mg/dL (83-110); Mean Corpuscular HGB CONC 33.3 g/dL (32.0-36.0); Mean Corpuscular Hemoglobin 32.5 pg (27.0-31.0); Mean Corpuscular Volume 97.5 fL (78.0-98.0); Mean Platelet Volume 6.6 fL (7.4-10.4); Platelet Count 277 thou/uL (130-400); Potassium 3.6 mmol/L (3.5-5.1); Protein, Total 5.8 g/dL (6.0-8.3); RBC Distribution Width 11.5 % (11.5-14.5); Sodium 131 mmol/L (136-145); White Blood Cell (WBC) Count 7.3 thou/uL (4.8-10.8)
[2018-07-16] MEDS ORDERED: cefTRIAXone\\ROCEPHIN 1 GM VIAL ONE (21:40)
[2018-07-16 21:58] LABS: Band 12 % (5-11); Lymphocytes 3 % (21-51); MDiff Complete? YES; Metamyelocyte 1 % (0-0); Monocytes 1 % (0-10); Neutrophil 83 % (42-75)
[2018-07-16] MEDS ORDERED: Methocarbamol 1 GM in Sodium Chloride 0.9% 250 ML 250 ML IVPB ONE (23:45)
--- NOTE | 2018-07-19 22:13 | EKG ---
Test Reason : Blood Pressure : / mmHG Vent. Rate : 076 BPM Atrial Rate : 076 BPM P-R Int : 188 ms QRS Dur : 078 ms QT Int : 362 ms P-R-T Axes : 077 -13 039 degrees QTc Int : 407 ms Normal sinus rhythm Possible Left atrial enlargement Borderline ECG Confirmed by HOME SHARPE [id number]), editor newspaper ESTEPHANIE RAMOS ([id number]) on 07/19/2018 10:13:09 PM Referred By: Confirmed By:HOME SHARPE
== END 2018-07-17 02:10 | disposition home or self-care (01) ==
LOC: ERS 20:03
DX: M62.838 Other muscle spasm (principal); I25.10 Atherosclerotic heart disease of native coronary artery without angina pectoris; E78.5 Hyperlipidemia, unspecified; I10 Essential (primary) hypertension; Z79.891 Long term (current) use of opiate analgesic; Z79.899 Other long term (current) drug therapy
CPT/HCPCS: 36415; 80053; 82550; 83605; 84484; 85025; 93005; 96365; 96375; J0696; J2800; J7050

== ENCOUNTER 2018-12-17 08:23 | Outpatient (CLI) | payer MEDICARE, BC ==
--- NOTE | 2018-12-17 09:34 | CT ---
EXAM: CT cervical spine PROVIDED CLINICAL HISTORY: Cervical stenosis and neck pain. The patient complains of right-sided neck pain that radiates into he r right shoulder blade. History of prior cervical spine surgery TECHNIQUE: Contiguous axial CT images are obtained through the cervical spine from the skull base to the T2 leve l. Sagittal and coronal reformatted images are provided. COMPARISON: 01/24/2018 FINDINGS: Again noted are postsurgical changes related to posterior spinal fusion of C1-C3. Again the left C1 s crew enters left side of the atlantodental interval and is medial to the lateral mass of C1. This is unchanged in position and does result in mild chronic erosive changes of the odontoid process. Rig ht C1 screw as well as bilateral pedicular screws in C3 and unilateral right-sided pedicular screw in C2 are stable in position without evidence of hardware complication. No change in alignment at the se levels. There has been interval postsurgical changes related to anterior cervical fusion of the C6 and C7 natalia tebral bodies with anterior plate and screws transfixing this level with intradiscal prosthesis seen. There is stable anterolisthesis of C6 on C7 The remaining vertebral body heights are within normal limits. No additional levels of subluxation ar e seen. Multilevel facet hypertrophic changes are seen. There is posterior fusion of the right-sided facets at the C5-6 level. No fracture is appreciated. Stable remote fracture of the right C2 articular pillar is again present. Facet hypertrophic changes again result in moderate to severe right-sided neural foraminal narrowing at C3-4, C4-C5, C5-C6, and C6-7 levels. There has been no interval change in alignment of the cervical spine when compared t o the prior exam with stable left convex curvature of the cervical spine. No prevertebral soft tissue swelling apparent. Dense vascular calcifications are again seen in the carotid arteries. Visualized lung apices appear clear. Visualized thyroid gland demonstrates a grossly normal nonenhanced CT appearance. IMPRESSION: 1. Stable postoperative changes related to posterior fusion of C1-C3 with interval postsurgical calderon es related to anterior cervical fusion at the C6-7 level. 3. Stable alignment of the cervical spine with overall stable multilevel degenerative changes in the cervical spine. 3. No acute fracture identified..
== END 2018-12-17 08:24 | disposition home or self-care (01) ==
LOC: CT 08:23
PROVIDERS: ATTEND Family Medicine
DX: M48.02 Spinal stenosis, cervical region (principal); M54.2 Cervicalgia; M47.812 Spondylosis without myelopathy or radiculopathy, cervical region; Z98.1 Arthrodesis status
CPT/HCPCS: 72125

== ENCOUNTER 2019-07-22 12:01 | Outpatient (CLI) | payer MEDICARE, BC ==
[2019-07-22] MEDS ORDERED: Magnevist 469MG/ML 20 ML VIAL ONE (13:55)
--- NOTE | 2019-07-22 14:17 | MRI ---
MRI LUMBAR SPINE WITH AND WITHOUT CONTRAST: DATE: 07/22/2019 HISTORY: 88-year-old female with ICD-10: M 62.81 right leg weakness M 25.559, hip pain Old back pain Right lumbar radiculopathy COMPARISON: 06/26/2018 TECHNIQUE: Multiple sequences obtained in axial and sagittal planes, pre and post IV injection of gadolinium-bas ed contrast agent. FINDINGS: For the purposes of this report, it will be assumed that there are 5 lumbar-type vertebrae. Vertebral body heights are maintained. Conus medullaris terminates at upper L2 level. No abnormal, unexpected enhancement within the spinal canal. 3 cm cystic lesion in right pelvic cavity again noted. New finding of distention of the urinary bladd er, incompletely imaged. Mild to moderate dilation of right renal collecting system, greater than on prior ultrasound, perhaps due to distended urinary bladder. Multiple small bilateral renal cysts. T12-L1:No central or high-grade neural foraminal stenosis. Mild disc bulge. Disc space maintained. L1-2:Slight retrolisthesis of L1 on L2. Disc space maintained. Mild disc bulge. No high-grade central stenosis. Mild bilateral neural foraminal stenosis. L2-3:Normal L3-4:Moderate right facet DJD. Mild left facet DJD. No high-grade neural foraminal stenosis. Mild dis c bulge. Right paracentral, right lateral, and right far lateral asymmetric disc bulge. Mild central spinal canal stenosis. Disc space maintained. L4-5:Severe bilateral facet DJD causes grade 1 anterolisthesis of L4 on L5. Irregularity of endplates . Next Modic type I and type II endplate marrow changes. Numerous tiny endplate defects. Diffuse disc bulge. Prior midline laminectomy. Moderate central spinal canal stenosis. Severe right neural fo raminal stenosis in the craniocaudal dimension, with chronic compression and the formation of the exiting right L4 nerve root. Moderate left neural foraminal stenosis in the craniocaudal dimension wi th the formation and flattening of the exiting left L4 nerve root, but less severe than on the contralateral side. L5-S1:Disc space maintained. No central or neural foraminal stenosis. Mild to moderate right facet DJ D. Severe left facet DJD. No major interval change in the lumbar spine since prior MRI. IMPRESSION: 1) mild to moderate right hydroureteronephrosis. Some of this could be related to the distended urina ry bladder. To evaluate for possible obstruction of the right ureter, recommend beginning with renal ultrasound to begin immediately after micturition. 2) grade 1 spondylolisthesis at L4-5 due to severe facet osteoarthrosis, and subsequent high-grade de generative disc disease. 3) this is also associated with severe right neural foraminal stenosis and moderate left neural josette inal stenosis, at L4-5, with chronic compressions of the exiting bilateral L4 nerve roots, right worse than left. 4) status post midline laminectomy at L4-5. 5) no major interval change in the lumbar spine compared to 06/26/2018.
--- NOTE | 2019-07-22 14:35 | MRI ---
MR OF THE THORACIC SPINE WITH AND WITHOUT CONTRAST INDICATION: Right leg weakness and right hip pain TECHNIQUE: Multiplanar multisequence MR images were obtained of the thoracic spine without contrast. Spine count series was provided. COMPARISON: MR the thoracic spine with and without contrast dated January 24, 2018. FINDINGS: 13 cc of MultiHance was utilized for the exam. Bone marrow signal intensity: Normal Spinal alignment: Normal Spinal cord: Normal signal intensity and contour. Paravertebral soft tissues: Normal Vertebral levels: T1-T2: No appreciable central canal or neural foraminal narrowing is evident. T2-T3: No appreciable central canal or neural foraminal narrowing. T3-T4: No appreciable central canal or neural foraminal narrowing.. T4-T5: No appreciable central canal or neural foraminal narrowing. T5-T6: No appreciable central canal or neural foraminal narrowing. T6-T7: No appreciable central canal or neural foraminal narrowing. T7-T8: No appreciable central canal or neural foraminal narrowing. T8-T9: No appreciable central canal or neural foraminal narrowing. T9-T10: No appreciable central canal or neural foraminal narrowing. T10-T11: No appreciable central canal or neural foraminal narrowing. T11-T12: No appreciable central canal or neural foraminal narrowing. T12-L1: No appreciable central canal or neural foraminal narrowing. Additional findings: None. IMPRESSION: 1. Normal MR of the thoracic spine.
--- NOTE | 2019-07-22 14:41 | MRI ---
MRI OF THE CERVICAL SPINE WITH AND WITHOUT IV CONTRAST: INDICATION: History of right leg weakness and right hip pain; history of cervical fusion. TECHNIQUE: Multiplanar multisequence MR images were obtained of the cervical spine with and without contrast uti lizing 13 cc of MultiHance. COMPARISON: Prior MR cervical spine with and without contrast dated January 24, 2018. FINDINGS: Since the comparison examination there is been interval placement of an ACDF spanning C6-C7. Slight a nterior translation of C6 on C7 remains. There is persistent region of severe central canal narrowing at C6-7 due to anterolisthesis and degenerative changes at C6-7. There is some mild interna l increased T2 signal involving the spinal cord at this level suspicious for changes of myelomalacia or edema. The visualized aspects of the posterior fossa appear within normal limits. The prevertebral soft tiss ues are normal appearing. At C2-C3, there is no appreciable central canal or neural foraminal narrowing. At C3-4, there is a mild broad-based bulge with uncovertebral hypertrophy and facet joint degenerativ e change inducing moderate right neural foraminal narrowing which is stable. At C4-5, there is uncovertebral hypertrophy and facet joint degenerative change but no appreciable ce ntral canal or neural foraminal narrowing. There is a minimal broad-based bulge. At C5-6, there is uncovertebral hypertrophy and facet joint degenerative change inducing moderate to severe bilateral neural foraminal narrowing which is more pronounced than on the prior exam. There is mild central canal narrowing due to a broad-based bulge. At the C6-7 level, there is the severe central canal narrowing as detailed above. There is moderate r ight neural foraminal narrowing which appears new from the prior exam. There is advanced facet osteoarthrosis again seen at C6-7. At C7-T1, there is no appreciable central canal or neural foraminal narrowing. No definite abnormal enhancement is demonstrated. IMPRESSION: 1. Interval ACDF of C6-7. 2. Anterolisthesis of C6-7 appears slightly more pronounced than on the prior examination. There is s evere canal narrowing at C6-7 inducing moderate spinal cord compression. There is some mild increased T2 signal seen within the spinal cord suspicious for changes of either myelomalacia or larissa a. 3. Moderate right neural foraminal narrowing at C3-4 is stable. 4. Moderate to severe bilateral neural foraminal at C5-6 is more pronounced than on the prior exam. 5. Moderate right neural foraminal narrowing at C6-7 is new. Transcribed Date/Time: 07/22/2019 2:58 PM
--- NOTE | 2019-07-22 15:34 | RAD ---
EXAM: 4 views of the lumbosacral spine HISTORY: Right leg weakness COMPARISON: None FINDINGS: 4 views of the lumbosacral spine shows grade 2 anterolisthesis of L4 on L5. Degenerative ch anges are seen surrounding L4/5 intervertebral disc. Posterior facet arthrosis is seen in the lower lumbosacral spine.. Alignment is unchanged with flexion and extension. The sacroiliac joints are unremarkable. IMPRESSION: Spondylolisthesis of L4 and L5 with unchanged alignment with bending
--- NOTE | 2019-07-22 15:37 | RAD ---
EXAM: 4 views of the cervical spine HISTORY: Neck pain; Herniated nucleus pulposus COMPARISON: None FINDINGS: AP, lateral, and flexion/extension views of the cervical spine shows normal height and alig nment of the vertebral bodies and intervertebral discs without fracture or subluxation. The patient is status post posterior fusion of L1-L3 with bilateral pedicle screws. No perihardware lucency is se en surrounding this hardware. The patient is status post anterior fusion of C6 and C7 with an anterior plate and screws. No perihardware lucency is seen surrounding this hardware. A disc spacer i s seen in the C6/7 disc space. Moderate posterior facet arthrosis is seen throughout the cervical spine. No prevertebral soft tissue swelling is seen. Alignment is unchanged with flexion and extensi on. IMPRESSION: Postoperative and degenerative changes of the lumbar spine with unchanged alignment with bending
== END 2019-07-22 12:02 | disposition home or self-care (01) ==
LOC: MRI 12:01
PROVIDERS: ATTEND Physician Assistant Surgical
DX: M62.81 Muscle weakness (generalized) (principal); M25.559 Pain in unspecified hip; M47.816 Spondylosis without myelopathy or radiculopathy, lumbar region; M43.16 Spondylolisthesis, lumbar region; M43.12 Spondylolisthesis, cervical region; M48.02 Spinal stenosis, cervical region; N13.30 Unspecified hydronephrosis; M51.36 Other intervertebral disc degeneration, lumbar region; M48.061 Spinal stenosis, lumbar region without neurogenic claudication; Z98.1 Arthrodesis status; Z98.890 Other specified postprocedural states
CPT/HCPCS: 72050; 72110; 72156; 72157; 72158; A9579

== ENCOUNTER 2019-09-01 07:34 | Outpatient (CLI) | payer MEDICARE, BC ==
[2019-09-01 12:04] LABS: Hemoglobin 12.1 g/dL (12.0-16.0); Mean Corpuscular Hemoglobin 33.3 pg (27.0-31.0); Mean Corpuscular Volume 97.8 fL (78.0-98.0); Mean Platelet Volume 7.6 fL (7.4-10.4); Platelet Count 282 thou/uL (130-400); RBC Distribution Width 11.3 % (11.5-14.5); Red Blood Cell (RBC) Count 3.63 mill/uL (4.20-5.40); White Blood Cell (WBC) Count 6.9 thou/uL (4.8-10.8)
[2019-09-01 12:10] LABS: PTT 32.1 SEC (22.9-36.1)
[2019-09-01 12:45] LABS: Anion Gap 13 mmol/L (10-20); BUN (Urea Nitrogen) 20 mg/dL (9.8-20.1); Calc. Creatinine Clearance 0 mL/min (70-130); Calcium 9.8 mg/dL (7.8-10.44); Carbon Dioxide 30 mmol/L (23-31); Chloride 96 mmol/L (98-107); Estimated GFR-MDRD 73; Glucose 93 mg/dL (83-110); Potassium 4.6 mmol/L (3.5-5.1); Sodium 134 mmol/L (136-145)
== END 2019-09-01 07:35 | disposition home or self-care (01) ==
LOC: LABBT 07:34
PROVIDERS: ATTEND Surgery
DX: Z01.818 Encounter for other preprocedural examination (principal); M48.061 Spinal stenosis, lumbar region without neurogenic claudication; M48.02 Spinal stenosis, cervical region; M43.16 Spondylolisthesis, lumbar region; M54.12 Radiculopathy, cervical region
CPT/HCPCS: 80048; 85027; 85610; 85730; 93005; 93010

== ENCOUNTER 2019-09-01 10:30 | Inpatient (IN) | payer MEDICARE, BC ==
[2019-09-01 10:45] VITALS: BMI 26.5
[2019-09-08] MEDS ORDERED: Bacitracin Zinc Ointment 30 gm TUBE ONE (08:03)
[2019-09-08] MEDS ORDERED: Thrombin 5000 UNITS/5 ML VIAL ONE ×3 (08:03→13:06)
[2019-09-08] MEDS ORDERED: Fentanyl 250 MCG/5 ML VIAL ONE (08:07)
[2019-09-08] MEDS ORDERED: Ketamine 50 MG/ML (10ML VIAL) ONE (09:01)
[2019-09-08] MEDS ORDERED: Albumin 5% 0 ML ONE (09:01)
[2019-09-08] MEDS ORDERED: Rocuronium Bromide 10 MG/ML (10ML VIAL) ONE (10:34)
[2019-09-08] MEDS ORDERED: Ondansetron PF 4 MG/2 ML Vial ONE (10:34)
[2019-09-08] MEDS ORDERED: PHENYLEPHRINE-NS 100 MCG/ML 10 ML SYRINGE ONE (10:34)
[2019-09-08] MEDS ORDERED: EPHEDRINE 25 MG/5 ML SYRINGE ONE (10:34)
[2019-09-08] MEDS ORDERED: Dexamethasone 20 MG/5 ML VIAL ONE (10:34)
[2019-09-08] MEDS ORDERED: PROPOFOL 200 MG/20 ML VIAL ONE (10:34)
[2019-09-08] MEDS ORDERED: Phenylephrine 10 MG/ML VIAL ONE (10:48)
[2019-09-08] MEDS ORDERED: SUGAMMADEX SODIUM 200 MG/2 ML VIAL ONE (13:33)
[2019-09-08] MEDS ORDERED: HYDROmorphone 2 MG/ML VIAL SLOW IVP PRN (14:27)
[2019-09-08] MEDS ORDERED: PACU-Morphine 4MG/ML VIAL SLOW IVP PRN (14:27)
[2019-09-08] MEDS ORDERED: Promethazine HCl 25 MG/ML VIAL IM PRN ×2 (14:27→15:45)
[2019-09-08] MEDS ORDERED: Ondansetron HCl/PF 4 MG/2 ML Vial IVP PRN (14:27)
[2019-09-08] MEDS ORDERED: Promethazine HCl 25 MG/ML VIAL SLOW IVP PRN (14:27)
[2019-09-08] MEDS ORDERED: Morphine Sulfate 2 MG/ML SYRINGE SLOW IVP PRN (14:27)
[2019-09-08] MEDS ORDERED: HYDROmorphone 0.5 MG/0.5 ML SYRINGE ONE ×4 (14:44→15:25)
[2019-09-08] MEDS ORDERED: traMADol HCl 50 MG TAB PO PRN (15:24)
[2019-09-08] MEDS ORDERED: tiZANidine HCl 4 MG TAB PO PRN (15:24)
[2019-09-08] MEDS ORDERED: Acetaminophen 325 MG TAB PO PRN (15:24)
[2019-09-08] MEDS ORDERED: Bisacodyl 10 MG SUPP PR PRN (15:24)
[2019-09-08] MEDS ORDERED: Milk Of Magnesia 30 ML UDCUP PO PRN (15:24)
[2019-09-08] MEDS ORDERED: Fleet Enema 133 ML BOT PR PRN (15:24)
[2019-09-08] MEDS ORDERED: Mag-Al 1200 mg/1200 mg/30 ML UDCUP PO PRN (15:24)
[2019-09-08] MEDS ORDERED: Ondansetron PF 4 MG/2 ML Vial IVP PRN ×2 (15:24→15:45)
[2019-09-08] MEDS ORDERED: Fentanyl 100 MCG/2 ML VIAL ONE ×2 (15:41→16:21)
[2019-09-08] MEDS ORDERED: diphenhydrAMINE 50 MG/ML VIAL IM PRN (15:45)
[2019-09-08] MEDS ORDERED: Communication Order-Pharmacy FS SCH (15:45)
[2019-09-08] MEDS ORDERED: Naloxone HCl 0.4 mg/ml Vial IV PRN (15:45)
[2019-09-08] MEDS ORDERED: diphenhydrAMINE 50 MG/ML VIAL IVP PRN (15:45)
[2019-09-08] MEDS ORDERED: Zolpidem Tartrate 5 MG TAB PO PRN (15:45)
[2019-09-08] MEDS ORDERED: diphenhydrAMINE 25 MG CAP PO PRN (15:45)
[2019-09-08] MEDS: Sodium Chloride 0.9% 1,000 ML IV SCH (17:56)
[2019-09-08] MEDS: CEFAZOLIN 2 GM in Premix Bag 1 BAG IVPB SCH (17:56)
[2019-09-08] MEDS: Lisinopril 20 MG TAB PO SCH (20:37)
[2019-09-08] MEDS: diphenhydrAMINE 25 MG CAP PO SCH (20:38)
[2019-09-08] MEDS: hydrALAZINE 25 MG TAB PO SCH (20:38)
[2019-09-08] MEDS: Gabapentin 300 MG CAP PO SCH (20:38)
[2019-09-08] MEDS: Metoprolol Tartrate 50 MG TAB PO SCH (20:38)
[2019-09-08] MEDS: Polyethylene Glycol 3350 17 GM Packet PO SCH (20:39)
[2019-09-09] MEDS: CEFAZOLIN 2 GM in Premix Bag 1 BAG IVPB SCH ×4 (01:29→23:55)
[2019-09-09] MEDS: Sodium Chloride 0.9% 1,000 ML IV SCH ×2 (05:51→20:13)
[2019-09-09 05:55] LABS: Anion Gap 10 mmol/L (10-20); BUN (Urea Nitrogen) 12 mg/dL (9.8-20.1); Calc. Creatinine Clearance 58 mL/min (70-130); Calcium 8.1 mg/dL (7.8-10.44); Carbon Dioxide 27 mmol/L (23-31); Chloride 97 mmol/L (98-107); Estimated GFR-MDRD 74; Glucose 111 mg/dL (83-110); Hemoglobin 9.2 g/dL (12.0-16.0); Mean Corpuscular HGB CONC 34.8 g/dL (32.0-36.0); Mean Corpuscular Hemoglobin 33.5 pg (27.0-31.0); Mean Corpuscular Volume 96.1 fL (78.0-98.0); Platelet Count 324 thou/uL (130-400); Potassium 3.9 mmol/L (3.5-5.1); Red Blood Cell (RBC) Count 2.76 mill/uL (4.20-5.40); Sodium 130 mmol/L (136-145); White Blood Cell (WBC) Count 14.7 thou/uL (4.8-10.8)
[2019-09-09 06:11] LABS: Band 11 % (5-11); Lymphocytes 7 % (21-51); MDiff Complete? YES; Monocytes 19 % (0-10); Neutrophil 63 % (42-75)
[2019-09-09] MEDS: Calcium Carbonate 600 MG + Vit D TAB PO SCH (08:30)
[2019-09-09] MEDS: Gabapentin 300 MG CAP PO SCH ×3 (08:30→20:14)
[2019-09-09] MEDS: Ezetimibe 10 MG TAB PO SCH (08:30)
[2019-09-09] MEDS: Metoprolol Tartrate 50 MG TAB PO SCH ×2 (08:32→20:14)
[2019-09-09] MEDS: hydrALAZINE 25 MG TAB PO SCH ×2 (08:32→20:14)
[2019-09-09] MEDS: Torsemide 10 MG TAB PO SCH (08:33)
--- NOTE | 2019-09-09 09:41 | ULT ---
EXAM: Bilateral lower extremity venous ultrasound HISTORY: Bilateral lower extremity pain and edema COMPARISON: 01/26/2018 TECHNIQUE: Multiplanar grayscale and color Doppler images were obtained in a bilateral lower extremit y venous ultrasound. Spectral analysis of the Doppler waveforms were performed. FINDINGS: The bilateral common femoral vein, profunda femoral veins, superficial femoral veins, and p opliteal veins are normal in appearance without visible thrombus. These vessels demonstrate normal compression, flow, and augmentation. The bilateral posterior tibial veins and greater saphenous veins are patent without evidence of throm bus. IMPRESSION: No evidence of DVT.
--- NOTE | 2019-09-09 09:51 | PRG ---
DATE OF SERVICE: Ms. Khoury is postoperative day 1 from C6-C7 laminectomy and fusion and L4-L5 laminectomy and fusion. Pain control has been an issue, not surprising given two surgeries in one. We do have her on a CUSTODIAL SERVICES MANAGER and appreciate our Pain Management colleagues assistance in this regard. Rehab has been consulted. We will arrange for a cervical collar for comfort and a lumbosacral orthosis for mobilization out of bed. Of note, her sodium is 130. We will free water restrict her to 1 L daily and encourage Gatorade. We will assess another hemoglobin tomorrow. On exam, she is alert and appropriate. She is limited by pain. She has a longstanding weakness in the right lower extremity, primarily in the right L4 myotome as a result of her cord compression and nerve root compression in the past. Again, we will continue to work with rehab and likely arrange for an ultrasound of the lower extremities today. Job ID: [id number]
--- NOTE | 2019-09-09 11:46 | OP ---
DATE OF PROCEDURE: 09/08/2019 FOLDING MACHINE SETTER: Abimbola Rae PA-C PREPROCEDURE DIAGNOSES: 1. Cervical stenosis with myelopathy with prior cervical spine surgery. 2. Progressive lumbar spondylolisthesis with severe lumbar radiculopathy and wheelchair-bound. POSTPROCEDURE DIAGNOSES: 1. Cervical stenosis with myelopathy with prior cervical spine surgery. 2. Progressive lumbar spondylolisthesis with severe lumbar radiculopathy and wheelchair-bound. PROCEDURES PERFORMED: 1. C6-C7 laminectomy, partial facetectomy, foraminotomies. 2. Posterolateral fusion, C6-C7. 3. Screw noemi fixation, right side C6-C7 due to inadequate lateral mass structure on the left C6. 4. Use of autograft obtained from same incision and allograft. 5. L4-L5 Gavlan laminectomy. 6. L4-L5 posterior screw noemi fixation. 7. Posterolateral fusion at L4-L5 bilaterally with use of local bone autograft obtained from same incision and allograft. DESCRIPTION OF PROCEDURE: After informed consent was obtained from the patient, the patient was brought to the OR. Proper patient, pause, and identification were carried out. She was placed under excellent general endotracheal anesthesia and the Botello Danielle was secured to the skull. She was positioned prone. Cervical spine in neutral position was identified along with lumbar spine neutrality. A linear dion was drawn out over the posterior cervical spine and the lumbar spine. These regions were sterilely cleansed, prepared, and draped. Proper patient, pause, and identification were carried out. Cervical spine was then exposed with sharp, monopolar, and blunt dissection. The C6-C7 segment again exposed the left C6 facet. Lateral mass was quite atrophic and really did not accept any screw purchase. As such, I instrumented the right C6-C7 segment, posterolateral arthrodesis bilaterally with C6-C7 laminectomy with excellent decompression of common dural tube and C7 nerve roots. The wound was copiously irrigated and closed in anatomic layers following sprinkling of vancomycin powder. We then turned our attention to the L4-L5 segment. This region was opened and L4-L5 exposure occurred. We then performed L4-L5 Galvan laminectomies bilaterally exposing the exiting L4 and traversing L5 nerve roots, removal of the facet complexes and pars. Screw noemi fixation at L4-L5 then occurred with final tightening. The posterolateral arthrodesis at L4-L5 then occurred as well. Local bone autograft obtained from same incision and allograft. Copious irrigation occurred throughout as did maximizing hemostasis. The wound was then closed in anatomic layers following sprinkling of vancomycin powder. The patient emerged from anesthesia. Job ID: [id number]
[2019-09-09] MEDS: Acetaminophen 325 MG TAB PO SCH ×3 (12:55→23:55)
[2019-09-09] MEDS: traMADol HCl 50 MG TAB PO SCH ×3 (12:55→23:55)
[2019-09-09] MEDS: Fenofibrate Nanocrystallized 145 MG TAB PO SCH (13:14)
[2019-09-09] MEDS: diphenhydrAMINE 25 MG CAP PO SCH (20:14)
[2019-09-09] MEDS: Polyethylene Glycol 3350 17 GM Packet PO SCH (20:14)
[2019-09-09] MEDS: Lisinopril 20 MG TAB PO SCH (20:14)
[2019-09-09] MEDS: fentaNYL Citrate/PF 2,000 MCG in Sodium Chloride 0.9% 60 ML IV PRN (21:11)
[2019-09-10] MEDS: Acetaminophen 325 MG TAB PO SCH ×4 (05:55→23:36)
[2019-09-10] MEDS: traMADol HCl 50 MG TAB PO SCH ×4 (05:55→23:36)
[2019-09-10] MEDS: Ezetimibe 10 MG TAB PO SCH (08:54)
[2019-09-10] MEDS: Metoprolol Tartrate 50 MG TAB PO SCH ×2 (08:54→19:20)
[2019-09-10] MEDS: hydrALAZINE 25 MG TAB PO SCH ×2 (08:54→19:18)
[2019-09-10] MEDS: Calcium Carbonate 600 MG + Vit D TAB PO SCH (08:54)
[2019-09-10] MEDS: Gabapentin 300 MG CAP PO SCH ×3 (08:54→19:20)
[2019-09-10] MEDS: Sodium Chloride 0.9% 1,000 ML IV SCH ×2 (08:55→19:20)
[2019-09-10] MEDS: CEFAZOLIN 2 GM in Premix Bag 1 BAG IVPB SCH (08:55)
[2019-09-10] MEDS: Torsemide 10 MG TAB PO SCH (09:44)
[2019-09-10] MEDS: Fenofibrate Nanocrystallized 145 MG TAB PO SCH (12:08)
[2019-09-10 12:51] LABS: #Eosinphils 0.1 thou/uL (0.0-0.7); #Lymphocytes 1.5 thou/uL (1.20-3.40); #Monocytes 2.2 thou/uL (0.11-0.59); #Neutrophils 11.6 thou/uL (1.40-6.50); %Basophils 0.2 % (0.0-1.0); %Eosinophils 0.6 % (0.0-10.0); %Lymphocytes 9.5 % (21.0-51.0); %Monocytes 14.2 % (0.0-10.0); %Neutrophils 75.5 % (42.0-75.0); Hemoglobin 8.7 g/dL (12.0-16.0); Mean Corpuscular HGB CONC 33.1 g/dL (32.0-36.0); Mean Corpuscular Hemoglobin 32.5 pg (27.0-31.0); Mean Corpuscular Volume 98.3 fL (78.0-98.0); Mean Platelet Volume 6.7 fL (7.4-10.4); Platelet Count 283 thou/uL (130-400); RBC Distribution Width 11.1 % (11.5-14.5); Red Blood Cell (RBC) Count 2.67 mill/uL (4.20-5.40); White Blood Cell (WBC) Count 15.3 thou/uL (4.8-10.8)
--- NOTE | 2019-09-10 12:52 | PRG ---
DATE OF SERVICE: 09/10/2019 Ms. Khoury is doing well on postoperative day #2 following cervical lumbar decompression fusion. She continues to be weak in the right lower extremity, although does move this a bit better than she did yesterday. She has no radicular pain. She moves her arms more robustly with good strength in her hand intrinsics. She feels overall more comfortable. She has already been accepted to inpatient rehab as bed availability is not an issue; however, no extended family will be able to be over there, and the patient has had issues in the past with postoperative delirium. As such, I would like to check another CBC today, although her vitals are stable and her sodium as she has a history of hyponatremia while she is alert and completely appropriate. I would like to make sure that she does not have any issues with this. If she does well today and tonight, we will plan for dismissal rehab tomorrow morning. Job ID: [id number]
[2019-09-10 13:14] LABS: Anion Gap 13 mmol/L (10-20); BUN (Urea Nitrogen) 18 mg/dL (9.8-20.1); Calc. Creatinine Clearance 56 mL/min (70-130); Calcium 8.3 mg/dL (7.8-10.44); Carbon Dioxide 25 mmol/L (23-31); Chloride 97 mmol/L (98-107); Estimated GFR-MDRD 72; Glucose 124 mg/dL (83-110); Potassium 4.4 mmol/L (3.5-5.1); Sodium 131 mmol/L (136-145)
[2019-09-10] MEDS: Lisinopril 20 MG TAB PO SCH (19:18)
[2019-09-10] MEDS: Polyethylene Glycol 3350 17 GM Packet PO SCH (19:20)
[2019-09-10] MEDS: diphenhydrAMINE 25 MG CAP PO SCH (19:20)
[2019-09-10] MEDS: fentaNYL Citrate/PF 2,000 MCG in Sodium Chloride 0.9% 60 ML IV PRN (21:12)
[2019-09-11] MEDS: Acetaminophen 325 MG TAB PO SCH ×4 (05:41→23:11)
[2019-09-11] MEDS: traMADol HCl 50 MG TAB PO SCH ×4 (05:41→23:11)
[2019-09-11] MEDS: hydrALAZINE 25 MG TAB PO SCH ×2 (08:48→20:45)
[2019-09-11] MEDS: Ezetimibe 10 MG TAB PO SCH (08:48)
[2019-09-11] MEDS: Calcium Carbonate 600 MG + Vit D TAB PO SCH (08:48)
[2019-09-11] MEDS: Metoprolol Tartrate 50 MG TAB PO SCH ×2 (08:49→20:46)
[2019-09-11] MEDS: Gabapentin 300 MG CAP PO SCH ×3 (08:49→20:45)
[2019-09-11] MEDS: Torsemide 10 MG TAB PO SCH (08:52)
[2019-09-11] MEDS: Sodium Chloride 0.9% 1,000 ML IV SCH ×2 (08:56→23:10)
[2019-09-11] MEDS: Fenofibrate Nanocrystallized 145 MG TAB PO SCH (11:51)
--- NOTE | 2019-09-11 12:03 | PRG ---
DATE OF SERVICE: 09/11/2019 Ms. Khoury is postoperative day #3 following C6-7 laminectomy and fusion and L4-L5 laminectomy and fusion. She is working with therapy this morning, learning how to stand again, and I think, eventually she will be a good candidate for inpatient rehab. She remains on supplemental oxygen, and as such, we will continue to work on getting her medically stable. She continues to have issues with hyponatremia, but this is longstanding. Given her age, I think continued observation and perhaps transfer to inpatient rehab on Saturday would be best. Job ID: [id number]
[2019-09-11] MEDS: Polyethylene Glycol 3350 17 GM Packet PO SCH (20:43)
[2019-09-11] MEDS: Lisinopril 20 MG TAB PO SCH (20:45)
[2019-09-11] MEDS: diphenhydrAMINE 25 MG CAP PO SCH (20:45)
[2019-09-12] MEDS: fentaNYL Citrate/PF 2,000 MCG in Sodium Chloride 0.9% 60 ML IV PRN (02:05)
[2019-09-12] MEDS: Acetaminophen 325 MG TAB PO SCH ×4 (05:01→23:57)
[2019-09-12] MEDS: traMADol HCl 50 MG TAB PO SCH ×4 (05:01→23:57)
--- NOTE | 2019-09-12 07:52 | PRG ---
DATE OF SERVICE: 09/12/2019 SUBJECTIVE: Nancy Khoury is 4 days out from both cervical decompression fusion as well as the lumbar decompression fusion at the same time. She is recovering slowly from those operations. She is still a bit unsteady on her feet according to the notes from Dr. Paiz and she had some weakness from radiculopathy in the lower extremity due to her spondylolisthesis and severe foraminal and canal stenosis. Ms. Khoury is planning on leaving the hospital on Saturday to go to inpatient rehabilitation. Her family is concerned that her previous experience in that facility was not perfect and therefore they wanted her to stay longer in the inpatient setting. We had a long discussion about COVID-19 in the community and the possibility that the hospital will become a place for virally infected patients to arrive. Given her age, I think she is at particularly high risk should that come to pass and weighed against her fear of leaving for rehab too early. She and her family will talk about it this afternoon. If they elect that they would like to transfer to rehab today, we can try to make that happen. Job ID: [id number]
[2019-09-12] MEDS: Ezetimibe 10 MG TAB PO SCH (08:19)
[2019-09-12] MEDS: Metoprolol Tartrate 50 MG TAB PO SCH ×2 (08:20→22:15)
[2019-09-12] MEDS: Torsemide 10 MG TAB PO SCH (08:20)
[2019-09-12] MEDS: Calcium Carbonate 600 MG + Vit D TAB PO SCH (08:20)
[2019-09-12] MEDS: Gabapentin 300 MG CAP PO SCH ×3 (08:20→22:14)
[2019-09-12] MEDS: hydrALAZINE 25 MG TAB PO SCH ×2 (08:20→22:15)
[2019-09-12] MEDS: Sodium Chloride 0.9% 1,000 ML IV SCH (11:43)
[2019-09-12] MEDS: Fenofibrate Nanocrystallized 145 MG TAB PO SCH (11:43)
--- NOTE | 2019-09-12 15:12 | ULT ---
Exam: Left lower extremity venous ultrasound with Doppler HISTORY: Swelling. Erythema. COMPARISON: None TECHNIQUE: Grayscale, color flow, Doppler imaging and spectral wave muscle from the left impression v enous system FINDINGS: There is soft tissue swelling There is compressibility and flow in the internal jugular vein. There is flow in the subclavian vein. There is compressibility and flow in the axillary vein, brachial vein, basilic vein, cephalic vein, radial vein, ulnar vein IMPRESSION: Dorsal thrombus in the left upper extremity deep venous system. Tissue swelling edema.
[2019-09-12] MEDS: COLESEVELAM 625 MG PO SCH (17:56)
[2019-09-12] MEDS: diphenhydrAMINE 25 MG CAP PO SCH (22:14)
[2019-09-12] MEDS: Lisinopril 20 MG TAB PO SCH (22:16)
[2019-09-12] MEDS: Polyethylene Glycol 3350 17 GM Packet PO SCH (22:17)
[2019-09-13] MEDS: Sodium Chloride 0.9% 1,000 ML IV SCH ×2 (05:52→17:50)
[2019-09-13] MEDS: Acetaminophen 325 MG TAB PO SCH ×3 (05:53→17:50)
[2019-09-13] MEDS: traMADol HCl 50 MG TAB PO SCH ×3 (05:53→17:50)
[2019-09-13] MEDS: fentaNYL Citrate/PF 2,000 MCG in Sodium Chloride 0.9% 60 ML IV PRN (06:30)
--- NOTE | 2019-09-13 07:52 | PRG ---
DATE OF SERVICE: 09/13/2019 I saw Nancy Khoury on rounds this morning on the third floor. She performed a log roll yesterday with assistance of Physical Therapy. She stood, she pivoted, and transferred to the chair next to her bed. She was there for 15 to 30 minutes and transferred with some assistance back to her bed. She did not stand and walk with her walker. She continues to use a CORNER BEAD OPERATOR, although she is not on any continuous infusion. She has not walked far enough to remove the catheter in her bladder. I do not see any fevers in the last 24 hours among the electronically documented vital signs. Her pulse is in the 60s to 70s. Blood pressures have been in the one teens to 150s. Iraida's neurological examination is unchanged. I have encouraged Ms. Khoury to move to inpatient rehabilitation as soon as possible. She understands and trying to spare her exposure to a virus that may be high risk given her age. Pain control is going to be an issue; however. We will make a transfer as soon as it is medically feasible and they have a bed and they are going to accept. Job ID: [id number]
[2019-09-13] MEDS: Torsemide 10 MG TAB PO SCH (09:12)
[2019-09-13] MEDS: Gabapentin 300 MG CAP PO SCH ×3 (09:13→20:29)
[2019-09-13] MEDS: Ezetimibe 10 MG TAB PO SCH (09:13)
[2019-09-13] MEDS: hydrALAZINE 25 MG TAB PO SCH ×2 (09:14→20:29)
[2019-09-13] MEDS: Metoprolol Tartrate 50 MG TAB PO SCH ×2 (09:15→20:29)
[2019-09-13] MEDS: COLESEVELAM 625 MG PO SCH ×2 (09:20→19:24)
[2019-09-13] MEDS: Calcium Carbonate 600 MG + Vit D TAB PO SCH (09:20)
[2019-09-13] MEDS: Fenofibrate Nanocrystallized 145 MG TAB PO SCH (12:59)
[2019-09-13] MEDS: Lisinopril 20 MG TAB PO SCH (20:29)
[2019-09-13] MEDS: Polyethylene Glycol 3350 17 GM Packet PO SCH (20:30)
[2019-09-13] MEDS: diphenhydrAMINE 25 MG CAP PO SCH (20:30)
[2019-09-14] MEDS: Acetaminophen 325 MG TAB PO SCH ×4 (00:58→13:58)
[2019-09-14] MEDS: traMADol HCl 50 MG TAB PO SCH ×4 (00:58→13:59)
[2019-09-14] MEDS: Sodium Chloride 0.9% 1,000 ML IV SCH (05:20)
[2019-09-14] MEDS: Calcium Carbonate 600 MG + Vit D TAB PO SCH (08:12)
[2019-09-14] MEDS: Gabapentin 300 MG CAP PO SCH ×2 (08:12→13:58)
[2019-09-14] MEDS: Metoprolol Tartrate 50 MG TAB PO SCH (08:13)
[2019-09-14] MEDS: hydrALAZINE 25 MG TAB PO SCH (08:13)
[2019-09-14] MEDS: Torsemide 10 MG TAB PO SCH (08:14)
[2019-09-14] MEDS: COLESEVELAM 625 MG PO SCH (08:14)
[2019-09-14] MEDS ORDERED: HYDROcodone/Acetaminophen 5/325 mg Tablet PO PRN (09:18)
[2019-09-14] MEDS ORDERED: HYDROcodone/Acetaminophen 7.5/325 mg Tablet PO PRN (09:19)
[2019-09-14 10:46] VITALS: BP 149/69; TEMP 97.6
--- NOTE | 2019-09-14 11:08 | PRG ---
DATE OF SERVICE: 09/14/2019 Ms. Khoury appears better today than she did last week. She is 6 days out from cervical lami fusion and lumbar laminectomy fusion. Her hemodynamics have been satisfactory with no evidence of tachycardia. Ultrasound demonstrated no thrombus in the left upper extremity. We are making arrangements for transfer to inpatient rehab and I have discussed also with her primary care physician, Dr. Leyva. Job ID: [id number]
[2019-09-14] MEDS: Ezetimibe 10 MG TAB PO SCH (12:34)
[2019-09-14] MEDS: Fenofibrate Nanocrystallized 145 MG TAB PO SCH (12:34)
== END 2019-09-14 14:00 | DRG 460 ==
LOC: SURG A 09-08 07:53
PROVIDERS: ADMIT Surgery; ATTEND Surgery
PROC: 0RG1071 Fusion of Cervical Vertebral Joint with Autologous Tissue Substitute, Posterior Approach, Posterior Column, Open Approach (ICD-10-PCS; principal; 2019-09-08)
PROC: 0SG0071 Fusion of Lumbar Vertebral Joint with Autologous Tissue Substitute, Posterior Approach, Posterior Column, Open Approach (ICD-10-PCS; 2019-09-08)
PROC: 01N10ZZ Release Cervical Nerve, Open Approach (ICD-10-PCS; 2019-09-08)
PROC: 01NB0ZZ Release Lumbar Nerve, Open Approach (ICD-10-PCS; 2019-09-08)
DX: M48.02 Spinal stenosis, cervical region (principal); G99.2 Myelopathy in diseases classified elsewhere; M48.061 Spinal stenosis, lumbar region without neurogenic claudication; M43.16 Spondylolisthesis, lumbar region; M54.12 Radiculopathy, cervical region; I10 Essential (primary) hypertension; E78.5 Hyperlipidemia, unspecified; I48.91 Unspecified atrial fibrillation; Z99.3 Dependence on wheelchair; Z79.899 Other long term (current) drug therapy; Z79.82 Long term (current) use of aspirin
CPT/HCPCS: 36415; 76000; 80048; 85025; 86850; 86900; 86901; 93970; C1713; C1768; J0690; J1100; J1170; J2370; J2405; J2704; J3010; J3370; J3490; P9045; Q0163

== ENCOUNTER 2019-11-11 09:49 | Outpatient (CLI) | payer MEDICARE, BC ==
--- NOTE | 2019-11-11 10:31 | RAD ---
RADIOGRAPH LUMBAR SPINE 2 VIEWS: DATE: 11/11/2019 HISTORY: 89-year-old female with lumbar radiculopathy COMPARISON: 07/22/2019 FINDINGS: 5 lumbar-type vertebrae. Exaggerated lordosis. Vertebral body heights are maintained. No change in gr ginette 2 anterolisthesis of L4 on L5. New bilateral pedicle screws at L4 and L5. IMPRESSION: Interval placement of bilateral transpedicle screws at L4 and L5 in order to stabilize the grade 2 sp ondylolisthesis at L4-5.
--- NOTE | 2019-11-11 11:35 | RAD ---
CERVICAL SPINE 3 VIEWS: HISTORY: Cervical stenosis. COMPARISON: 07/22/2019, prior surgery in August 2019. FINDINGS: New right posterior facet screw placement changes at C6-C7 with stable anterior cervical fusion calderon es at this level as well. Overall stable approximately 0.5 cm grade I/II anterolisthesis of C6 on C 7. Extensive disk-osteophytosis and facet arthrosis. Stable posterior screw and noemi fixation change s of C1, C2, and C3. IMPRESSION: Placement of right-sided posterior facet screw fixation changes at C6-C7 with persistent but overall stable-appearing anterolisthesis of C6 on C7. Other postoperative hardware is stable. Significant s pondylosis. POS: [facility]
== END 2019-11-11 09:50 | disposition home or self-care (01) ==
LOC: BICRAD 09:49
PROVIDERS: ATTEND Surgery
DX: M48.02 Spinal stenosis, cervical region (principal); M54.16 Radiculopathy, lumbar region; M43.12 Spondylolisthesis, cervical region; M43.16 Spondylolisthesis, lumbar region; M47.812 Spondylosis without myelopathy or radiculopathy, cervical region; Z98.1 Arthrodesis status
CPT/HCPCS: 72040; 72100